=== PATIENT | female | born 1985 | race Hispanic/Latino ===

== ENCOUNTER 2019-11-25 13:55 | Outpatient (CLI) | payer BC, SELFPAY ==
--- NOTE | ~2019-11-25 | US_ITS ---
US abdomen limited INDICATION: Elevated liver enzymes PROCEDURE: Realtime right upper abdominal ultrasound. COMPARISON: No prior studies for comparison. FINDINGS: The pancreas is normal without focal mass or pancreatic ductal dilation. Liver echotexture is increased, consistent with fatty infiltration. There is normal directional flow in the portal ve in. The gallbladder is normal without stones, gallbladder wall thickening or pericholecystic fluid. Comm on bile duct measures 4 mm. No sonographic Camacho's sign. IMPRESSION: 1: Hepatic steatosis. Reviewed, dictated and finalized at location A. PLANNER IMPRESSION: 1: Hepatic steatosis.
== END 2019-11-25 13:56 | disposition home or self-care (01) ==
LOC: ANHIMG 13:59
PROVIDERS: PCP Physician Assistant; Visit Provider Physician Assistant
DX: R74.8 Abnormal levels of other serum enzymes (principal); K76.0 Fatty (change of) liver, not elsewhere classified
CPT/HCPCS: 76705

== ENCOUNTER 2024-11-25 20:10 | Emergency (ER) | payer SELFPAY ==
--- NOTE | ~2024-11-25 | XR_ITS ---
EXAMINATION: XR chest 2V DATE: 11/25/2024 21:29 INDICATION: Chest pain. TECHNIQUE: Frontal and lateral views of the chest were obtained. COMPARISON: CT abdomen and pelvis 01/02/2014 FINDINGS: There is no pneumonia, pleural effusion, or pneumothorax. The heart size is normal. IMPRESSION: 1. No acute cardiopulmonary disease. Reviewed, dictated and finalized at location A. CCO PRIMER MACHINE OPERATOR
--- OUTSIDE RECORDS SUMMARY | 2024-11-25 20:12 | XMS_ITS ---
Author Organization [facility] Address [address] [place] [address] Care Team Providers Care Packaging Line Attendant Name Role Phone McTimothy Unavailable [phone] REASON FOR VISIT [facility], interested in peptide therapy - prior Victoza losing 50 lbs but lost insurance, no side effects, appetite suppression lasting 3-4 days, Desired weight loss: previous shot at home -58lbs. -3.0 since last visit , - 11.1 total weight loss, No history MTC or MEN2 or pancreatitis, Concerned about future DM and OA Encounters Encounter Location Date Provider Diagnosis [facility] ([address]) [address] [address] 09/27/2024 Timothy Bentley Chronic fatigue, unspecified R53.82 ; Abnormal weight gain R63.5 ; Other fatigue R53.83 and Other malaise R53.81 Assessments Encounter Date Diagnosis (ICD Code) Assessment Notes Treatment Notes Treatment Clinical Notes Section Notes 09/27/2024 Chronic fatigue, unspecified (ICD-10 - R53.82) 09/27/2024 Abnormal weight gain (ICD-10 - R63.5) 09/27/2024 Other fatigue (ICD-10 - R53.83) 09/27/2024 Other malaise (ICD-10 - R53.81) Plan Of Treatment Next Appt Details Follow Up: 1 Week, Reason: G LP-1 Agonist Administration Procedure Notes * Category Sub-Category Detail Notes [facility] tirzepatide Indication: weig ht loss Concentration: 10 mg/mL Volume Administered: 0.25 mL Dose Administered: 2.5 mg Route: SQ Location: Left abdomen Frequency: weekly Lot Number/Expiration: Medication Source: Nutraceutical Comp ounding Adverse Reaction: None Progress Notes * Lb LOUISEaDOB:1985 (39 yo F)Acc No.[id number]:09/27/2024 Weight Loss Patient: Florecita NASCIMENTO Provider: Conrado Bentley MD :1985 A ge:39 Y S ex:Female Date:09/27/2024 Address:[address] [place] [address] Subjective: * Chief Complaints: * 1 . [facility], interested in peptide therapy - prior Victoza losing 50 lbs but lost insurance, no side effects, appetite suppression lasting 3-4 days. 2. Desired weight loss: previous shot at home -58lbs. -3.0 since last visit , - 11.1 total weight loss. 3. No history MTC or MEN2 or pancreatitis. 4. Concerned about future DM and OA. * HPI: * [facility]: The risks, benefits & alternatives were discussed regarding available treatment options. A treatment path was determined after reviewing the patients medical records, our verbal discussions and via joint decision-making Consents for our planned treatments were signed and are on file. * Medical History: Objective: * Vitals: Assessment: * Assessment: 1. A bnormal weight gain - R63.5 (Primary) 2 . C hronic fatigue, unspecified - R53.82 3 . O ther fatigue - R53.83 4 . O ther malaise - R53.81 Plan: * Treatment: * Procedures: [facility]: Weight Management: tirzepatide I ndication w eight loss C oncentration 1 0 mg/mL V olume Administered 0 .25 mL D ose Administered 2 .5 mg R oute S Q L ocation L eft abdomen F requency w eekly L ot Number/Expiration 0 M edication Source A H Nutraceutical Compounding A dverse Reaction N one * Follow Up: 1 Week (Reason: GLP-1 Agonist Administration) * Billing Information: * Visit Code: * Procedure Codes: 76667 [facility] - Weekly (tirzepatide) (0.5-5 mg) Tier 1. * Electronic signature of Patr sal Bentley MD, FAAAAI on 11/25/2024 at 08:12 PM TAKE AWAY WORKER Sign off status: Pending * Provider: Conrado Bentley MD Date: 1 11/28/2023 Generated for Trina fine/Marisol/Eleni on: 0 11/25/2024 08:12 PM TAKE AWAY WORKER History and Physical Notes * HPI (History of Present Illness) Category Sub-Category Detail Notes Category Not es *[facility] The r isks, benefits & alternatives were discussed regarding available treatment options. A treatment path was determined after reviewing the patients medical records, our verbal discussions and via joint decision-making Consents for our planned treatments were signed and are on file
--- OUTSIDE RECORDS SUMMARY | 2024-11-25 20:13 | XMS_ITS | Continuity of Care Document ---
Author Organization [facility] Address [address] [place] [address] Phone Care Team Providers Care Developmental Education Instructor Name Role Phone Pam ROUSSEAU, Jodi Unavailable Unavailable Allergies, Adverse Reactions, Alerts Substance Reaction Status Criticality Penicillins Active No Information Medications Medication Instructions Dosage Effective Dates (start - stop) Status Comments Prilosec 20 mg capsule,delayed release take 1 capsule (20MG) by oral route every day before a meal - Active Prenavite 28 mg-0.8 mg tablet one by mouth daily - Active Procedures Procedure Date care, at-risk assessment care, at-risk enhanced service; antepartum management MENTAL HEALTH ASSESSMENT, BY NON-PHYSICI AN Oral Assessment URINE TEST, BY VISUAL COLOR CO MPARISON METHODS Voided Encounter COLLECTION OF VENOUS BLOOD BY VENIPUNCTMoises RE OFFICE/OUTPATIENT VISIT, EST OFFICE/OUTPATIENT VISIT, EST AZITHROMYCIN DIHYDRATE, ORAL, CAPSULES/P OWDER, 1 GRAM OFFICE/OUTPATIENT VISIT, EST Wet margaret, including preparations of va ginal, cervical or skin specimens OFFICE/OUTPATIENT VISIT, EST Wet margaret, including preparations of va ginal, cervical or skin specimens COLLECTION OF VENOUS BLOOD BY VENIPUNCTU RE AZITHROMYCIN DIHYDRATE, ORAL, CAPSULES/P OWDER, 1 GRAM OFFICE/OUTPATIENT VISIT, EST OFFICE/OUTPATIENT VISIT, EST Wet margaret, including preparations of va ginal, cervical or skin specimens OFFICE/OUTPATIENT VISIT, EST OFFICE OUTPT EST 10 MIN HUMAN PAPILLOMA VIRUS VACCINE QUADRIV 3 DOSE IM OFFICE/OUTPATIENT VISIT, EST THYROID STIMULATING HORMONE (TSH) SHVG SKN LES 1 LES T/A/L DIAM 0.6-1.0 CM BLOOD COUNT; COMPLETE (CBC), AUTOMATED (HGB, HCT, RBC, WBC AND PLATELET COUNT) LIPID PANEL CALCIFEDIOL (25-OH VITAMIN D-3) 009 GLUCOSE BLOOD TEST OFFICE/OUTPATIENT VISIT, EST COLLECTION OF VENOUS BLOOD BY VENIPUNCTU RE COMPRE METAB PANEL CUL FNGI MOLD/YEAST PRSMPTV ID SKN HAIR/ NAIL CHYLMD TRACH, DNA, AMP PROBE N.GONORRHOEAE, DNA, AMP PROB CULTURE, BACTERIAL; QUANTITATIVE COLONY COUNT, URINE CYTP C/V AUTO THIN LYR PREPJ SCR MNL RES CR PHYS URNLS DIP STICK/TABLET RGNT AUTO W/O TIFF HUMAN PAPILLOMA VIRUS VACCINE QUADRIV 3 DOSE IM URINALYSIS; MICROSCOPIC ONLY OFFICE OUTPT EST 40 MIN Limit oral eval problem focused 008 Periapical first film OFFICE/OUTPATIENT VISIT, EST OFFICE OUTPT EST 10 MIN INSERTION OF INTRAUTERINE DEVICE (IUD) N URINE TEST, BY VISUAL COLOR CO MPARISON METHODS OFFICE CONSULT, 15 MIN, 3 KE Y COMPS: PROB FOCUS HX; PROB FOCUS EXAM; STRTFWD BLOOD COUNT; HEMOGLOBIN (HGB) 6 OFFICE OUTPT EST 25 MIN BLOOD COUNT; HEMOGLOBIN (HGB) 6 US PG UTER R-T IMG LMTD 1+ FETUSES HOSPITAL DISCHARGE DAY MANAGEMENT; 30 WA NUTES OR LESS SBSQ HOSP CARE NM D 15 MIN OBSTETRICAL CARE URNLS DIP STICK/TABLET RGNT AUTO W/O TIFF OFFICE OUTPT EST 25 MIN URNLS DIP STICK/TABLET RGNT AUTO W/O TIFF GLUCOSE BLOOD TEST CULTURE, PRESUMPTIVE, PATHOGENIC ORGANIS MS, SCREENING ONLY; OFFICE OUTPT EST 25 MIN PROTEIN, TOTAL, EXCEPT BY REFRACTOMETRY; URINE URNLS DIP STICK/TABLET RGNT AUTO W/O TIFF OFFICE OUTPT EST 25 MIN GLUCOSE BLOOD TEST OFFICE CONSULT, 15 MIN, 3 KE Y COMPS: PROB FOCUS HX; PROB FOCUS EXAM; [facility] GLUCOSE BLOOD TEST OFFICE OUTPT EST 25 MIN URNLS DIP STICK/TABLET RGNT AUTO W/O TIFF OFFICE OUTPT EST 25 MIN URNLS DIP STICK/TABLET RGNT AUTO W/O TIFF GLUCOSE; POST GLUCOSE DOSE (INCLUDES GLU COSE) OFFICE CONSULT, 15 MIN, 3 KE Y COMPS: PROB FOCUS HX; PROB FOCUS EXAM; [facility] GLUCOSE BLOOD TEST OFFICE/OUTPATIENT VISIT, EST URNLS DIP STICK/TABLET RGNT AUTO W/O TIFF OFFICE OUTPT EST 25 MIN CULTURE, BACTERIAL; QUANTITATIVE COLONY COUNT, URINE GLUCOSE BLOOD TEST URNLS DIP STICK/TABLET RGNT AUTO W/O TIFF OFFICE CONSULT, 15 MIN, 3 KE Y COMPS: PROB FOCUS HX; PROB FOCUS EXAM; [facility] OFFICE CONSULT, 15 MIN, 3 KE Y COMPS: PROB FOCUS HX; PROB FOCUS EXAM; [facility] SMEAR, WET MOUNT, SALINE/INK CHYLMD TRACH, DNA, AMP PROBE CYTP C/V FLU AUTO THIN MNL PHYS 006 N.GONORRHOEAE, DNA, AMP PROB OFFICE OUTPT EST 25 MIN URNLS DIP STICK/TABLET RGNT AUTO W/O TIFF OFFICE CONSULT, 15 MIN, 3 KE Y COMPS: PROB FOCUS HX; PROB FOCUS EXAM; STRTFWD OFFICE O/P EST 5 MIN OFFICE CONSULT, 15 MIN, 3 KE Y COMPS: PROB FOCUS HX; PROB FOCUS EXAM; STRTFWD OFFICE CONSULT, 15 MIN, 3 KE Y COMPS: PROB FOCUS HX; PROB FOCUS EXAM; STRWD HEMOGLOBIN ELECTROPHORESIS OB PANEL CULTURE, BACTERIAL; QUANTITATIVE COLONY COUNT, URINE ANTIBODY; HIV-1 URNLS DIP STICK/TABLET RGNT AUTO W/O TIFF LEAD OFFICE OUTPT EST 25 MIN SKIN TEST; TUBERCULOSIS, INTRADERMAL Oct OFFICE OUTPT EST 25 MIN OFFICE CONSULT, 15 MIN, 3 KE Y COMPS: PROB FOCUS HX; PROB FOCUS EXAM; STRWD URINE TEST, BY VISUAL COLOR CO MPARISON METHODS OFFICE O/P EST 5 MIN Advance Directives Directive Yes / No Effective Date File Name No Information Encounters Encounter Description Practice Location Reason(s) For Visit Diagnoses Date Provider Providers Copied on Encounter [facility], [address], [place], [place], [address] , tel:[phone] [facility] No Information 4 Pam Zapata. [address], [place], [place], [address], . tel:[phone] [facility], [address], [place], [place], [address] , tel:[phone] [facility] No Information 2 Pam Zapata. [address], [place], [place], [address], . tel:[phone] [facility], [address], [place], [place], [address] , [place] tel: [phone] [facility] No Information 2 Management Case. [address], [place], [place], [address], [place]. tel:[phone] Consulting Provider: Day Travis, [address], [place], [address]. tel:[phone] [facility], [address], [place], [place], [address] , [place] tel: [phone] [facility] examination 2 Karin Sheryl. [address], [place], [place], [address]. tel:[phone] [facility], [address], [place], [place], [address] , tel: [phone] [facility] No Information 2 No Information [facility], [address], [place], [place], [address] , [place] tel: [phone] [facility] amenorrhea (chief complaint) examination or test, unconfirmed 2 No Information [facility], [address], [place], [place], [address] , [place] tel: [phone] [facility] Other specified chlamydial infection 2 Pam Zapata. [address], [place], [address], [place]. tel:[phone] [facility], [address], [place], [place], [address] , [place] tel: [phone] [facility] Other specified chlamydial infection 2 Pam Zapata. [address], [place], [place], [address], [place]. tel:[phone] OFFICE/OUTPA TIENT VISIT, EST [facility], [address], [place], [place], [address] , [place] tel: [phone] [facility] f/u (chief complaint) Screening examination for venereal disease 2 Pam Zapata. [address], [place], [place], [address], [place]. tel:[phone] [facility], [address], [place], [place], [address] , [place] tel: [phone] [facility] Candidiasis of vulva and vagina 2 Pam Conwayah. [address], [place], [place], [address], [place]. tel:[phone] OFFICE/OUTPA TIENT VISIT, EST [facility], [address], [place], [place], [address] , [place] tel: [phone] [facility] IUD insertion (chief complaint) Other general counseling and advice on contraceptive management 2 Pam Zapata. [address], [place], [place], [address], [place]. tel:[phone] OFFICE/OUTPA TIENT VISIT, EST [facility], [address], [place], [place], [address] , [place] tel: [phone] [facility] chlamydia f/u (chief complaint) Other specified chlamydial infection 1 Pam Conwayah. [address], [place], [place], [address], [place]. tel:[phone] OFFICE/OUTPA TIENT VISIT, EST [facility], [address], [place], [place], [address] , [place] tel: [phone] [facility] ANDRADE (chief complaint) Leukorrhea, not specified as infectiveOthe r general counseling and advice on contraceptive managementScr eening for malignant neoplasms of the cervix 1 Pam Zapata. [address], [place], [place], [address], [place]. tel:[phone] [facility], [address], [place], [place], [address] , [place] tel: [phone] [facility] Screening for unspecified condition 1 Pam Zapata. [address], [place], [place], [address], [place]. tel:[phone] OFFICE/OUTPA TIENT VISIT, EST [facility], [address], [place], [place], [address] , [place] tel: [phone] [facility] IUD removal (chief complaint) Other general counseling and advice on contraceptive managementOth er specified chlamydial infection 1 Pam Zapata. [address], [place], [place], [address], [place]. tel:[phone] OFFICE/OUTPA TIENT VISIT, EST [facility], [address], [place], [place], [address] , [place] tel: [phone] [facility] PT only (chief complaint)a bdominal discomfort (chief complaint) Surveillance of intrauterine contraceptive device 1 Lenard Shepherd. [address], [place], [address], [place]. tel:[phone] OFFICE/OUTPA TIENT VISIT, EST [facility], [address], [place], [place], [address] , [place] tel: [phone] [facility] IUD check (chief complaint) Surveillance of intrauterine contraceptive device 0 Pam Zapata. [address], [place], [place], [address], [place]. tel:[phone] [facility], [address], [place], [place], [address] , [place] tel: [phone] Historic Immunization Location No Information 9 No Information OFFICE OUTPT EST 10 MIN [facility], [address], [place], [place], [address] , [place] tel: [phone] [facility] VACCIN FOR SINGL DIS NOS 9 Pam Zapata. [address], [place], [place], [address], [place]. tel:[phone] OFFICE/OUTPA TIENT VISIT, EST [facility], [address], [place], [place], [address] , [place] tel: [phone] [facility] DERMATOPHYTOS IS OF NAILSKIN HYPERTRO/ATRO PH NOS 0 9 Pam Jodi. [address], [place], [address], [place]. tel:[phone] OFFICE/OUTPA TIENT VISIT, EST [facility], [address], [place], [place], [address] , [place] tel: [phone] [facility] DERMATOMYCOSI S NOS 9 No Information OFFICE OUTPT EST 40 MIN [facility], [address], [place], [place], [address] , [place] tel: [phone] [facility] OTH SPECFD VIRAL WARTSROUTINE ACCOUNTING PRACTICE MANAGER EXAMINATIONDE RMATOPHYTOSIS OF NAIL 9 [facility] Jodi. [address], [place], [place], [address], [place]. tel:[phone] [facility], [address], [place], [place], [address] , [place] tel: [phone] [facility] DENTAL EXAMINATION 8 No Information OFFICE/OUTPA TIENT VISIT, EST [facility], [address], [place], [place], [address] , [place] tel: [phone] [facility] VIRAL WARTS NOS 7 No Information OFFICE OUTPT EST 10 MIN [facility], [address], [place], [place], [address] , [place] tel: [phone] [facility] IUD SURVEILLANCE 6 No Information [facility], [address], [place], [place], [address] , [place] tel: [phone] [facility] INSERTION OF IUD 6 No Information OFFICE CONSULT, 15 MIN, 3 PERSAUD COMPS: PROB FOCUS HX; PROB FOCUS EXAM; STRTFWD [facility], [address], [place], [place], [address] , [place] tel: [phone] [facility] COUNSELING NOS 6 No Information OFFICE OUTPT EST 25 MIN [facility], [address], [place], [place], [address] , [place] tel: [phone] [facility] ROUT POSTPART FOLLOW-UP 6 Pam Jodi. [address], [place], [place], [address], [place]. tel:[phone] [facility], [address], [place], [place], [address] , [place] tel: [phone] [facility] NORMAL DELIVERYLABOR ATORY EXAMINATION 6 Pam Jodi. [address], [place], [place], [address], [place]. tel:[phone] HOSPITAL DISCHARGE DAY MANAGEMENT; 30 MINUTES OR LESS [facility], [address], [place], [place], [address] , [place] tel: [phone] [facility] NORMAL DELIVERYDEL W 1 DEG LACERAT-DELDE LIVER-SINGLE LIVEBORN 6 No Information OFFICE OUTPT EST 25 MIN [facility], [address], [place], [place], [address] , [place] tel: [phone] [facility] SUPERVIS NORMAL 1ST PREG 6 Pam Ojdi. [address], [place], [place], [address], [place]. tel:[phone] OFFICE OUTPT EST 25 MIN [facility], [address], [place], [place], [address] , [place] tel:[phone] [facility] SUPERVIS OTH NORMAL PREG 200 6 Pam Jodi. [address], [place], [address], [place]. tel:[phone] [facility], [address], [place], [place], [address] , [place] tel: [phone] [facility] LABORATORY EXAMINATION 2- 6 Pam Jodi. [address], [place], [place], [address], [place]. tel:[phone] OFFICE OUTPT EST 25 MIN [facility], [address], [place], [place], [address] , [place] tel: [phone] [facility] SUPERVIS OTH NORMAL PREG 7-200 6 Pam Jodi. [address], [place], [address], [place]. tel:[phone] OFFICE CONSULT, 15 MIN, 3 PERSAUD COMPS: PROB FOCUS HX; PROB FOCUS EXAM; STRTFWD [facility], [address], [place], [place], [address] , [place] tel: [phone] [facility] COUNSELING NOS 1- 6 No Information OFFICE OUTPT EST 25 MIN [facility], [address], [place], [place], [address] , [place] tel: [phone] [facility] SUPERVIS OTH NORMAL PREG 3-200 6 Pam Jodi. [address], [place], [place], [address], [place]. tel:[phone] OFFICE OUTPT EST 25 MIN [facility], [address], [place], [place], [address] , [place] tel: [phone] [facility] SUPERVIS OTH NORMAL PREG 4-200 6 Pam Jodi. [address], [place], [address], [place]. tel:[phone] OFFICE CONSULT, 15 MIN, 3 PERSAUD COMPS: PROB FOCUS HX; PROB FOCUS EXAM; STRTFWD [facility], [address], [place], [place], [address] , [place] tel: [phone] [facility] COUNSELING NOS 1- 6 No Information OFFICE/OUTPA TIENT VISIT, EST [facility], [address], [place], [place], [address] , [place] tel: [phone] [facility] SUPERVIS OTH NORMAL PREG Jan- 6 Pam Jodi. [address], [place], [place], [address], [place]. tel:[phone] OFFICE OUTPT EST 25 MIN [facility], [address], [place], [place], [address] , [place] tel: [phone] [facility] SUPERVIS OTH NORMAL PREG Dec-0 6-200 6 Pam Jodi. [address], [place], [place], [address], [place]. tel:[phone] OFFICE CONSULT, 15 MIN, 3 PERSAUD COMPS: PROB FOCUS HX; PROB FOCUS EXAM; STRTFWD [facility], [address], [place], [place], [address] , [place] tel: [phone] [facility] ADJUSTMENT REACTION NOS Dec-0 3-200 6 No Information OFFICE CONSULT, 15 MIN, 3 PERSAUD COMPS: PROB FOCUS HX; PROB FOCUS EXAM; STRTFWD [facility], [address], [place], [address] , [place] tel: [phone] [facility] ADJUSTMENT REACTION NOS 4-200 6 No Information OFFICE OUTPT EST 25 MIN [facility], [address], [place], [place], [address] , [place] tel: [phone] [facility] SUPERVIS OTH NORMAL PREGURIN TRACT INFECTION NOS 200 6 Pam Jodi. [address], [place], [place], [address], [place]. tel:[phone] OFFICE CONSULT, 15 MIN, 3 PERSAUD COMPS: PROB FOCUS HX; PROB FOCUS EXAM; STRTFWD [facility], [address], [place], [place], [address] , [place] tel: [phone] [facility] ECONOMIC PROBLEM 6 No Information OFFICE O/P EST 5 MIN [facility], [address], [place], [place], [address] , [place] tel: [phone] [facility] SUPERVIS OTH NORMAL PREGFOLLOW-UP EXAM NOS 6 No Information OFFICE CONSULT, 15 MIN, 3 PERSAUD COMPS: PROB FOCUS HX; PROB FOCUS EXAM; STRTFWD [facility], [address], [place], [place], [address] , [place] tel: [phone] [facility] ADJUSTMENT REACTION NOS 6 No Information OFFICE CONSULT, 15 MIN, 3 PERSAUD COMPS: PROB FOCUS HX; PROB FOCUS EXAM; STRTFWD [facility], [address], [place], [place], [address] , [place] tel: [phone] [facility] ECONOMIC PROBLEM 6 No Information OFFICE OUTPT EST 25 MIN [facility], [address], [place], [place], [address] , [place] tel: [phone] [facility] SUPERVIS OTH NORMAL PREG 6 Pam Jodi. [address], [place], [place], [address], [place]. [phone] OFFICE OUTPT EST 25 MIN [facility], [address], [place], [place], [address] , [place] tel: [phone] [facility] OTITIS MEDIA NOS 6 Lenard Shepherd. [address], [place], [place], [address], [place]. tel:[phone] OFFICE CONSULT, 15 MIN, 3 PERSAUD COMPS: PROB FOCUS HX; PROB FOCUS EXAM; STRTFWD [facility], [address], [place], [place], [address] , [place] tel: [phone] [facility] ADJUSTMENT REACTION NOS 6 No Information OFFICE O/P EST 5 MIN [facility], [address], [place], [place], [address] , [place] tel: [phone] [facility] IRREGULAR MENSTRUATION 6 Lenard Shepherd. [address], [place], [place], [address], [place]. tel:[phone] Family History Family Member Type Diagnosis Age At Onset No Information Immunizations Vaccine Date Status Comments HUMAN PAPILLOMA VIRUS VACCIN E QUADRIV 3 DOSE IM administered Source: New Immuniza tion Record HUMAN PAPILLOMA VIRUS VACCIN E QUADRIV 3 DOSE IM administered Source: New Immuniza tion Record Payers Payer name Insurance type Covered libertarian ID Authoriza tion(s) Medicaid - Medical [id number] Social History Type Description Quantity Date Captured Comments Sex Female Smoking Status No Information Chief Complaint And Reason For Visit No Information Reason For Referral Reason For Referral No Information Plan Of Treatment Date Type Action Status Future Order: Lab Order CHLAMYDI A/N. GONORRHOEAE DNA, SDA ([id number]), Appointment on: , Sent on: Sent Future Order: Lab Order CHLAMYDI A/N. GONORRHOEAE DNA, SDA ([id number]), Appointment on: , Sent on: Sent Future Order: Lab Order CHLAMYDI A/N. GONORRHOEAE DNA, SDA ([id number]), Appointment on: , Sent on: Sent Future Order: Lab Order Wet Prep (Wet Prep), Appointment on: Ordered Future Order: Lab Order CHLAMYDI A/N. GONORRHOEAE DNA, SDA ([id number]), Appointment on: , Sent on: Sent Future Order: Lab Order THINPREP -TIS W/RFL HPV ([id number]), Appointment on: , Sent on: Sent Future Order: Lab Order Wet Prep (Wet Prep), Appointment on: Ordered Future Order: Lab Order HCG, QL, URINE ([id number]), Appointment on: , Sent on: Sent Future Order: Lab Order Wet Prep (Wet Prep), Appointment on: Ordered History Of Present Illness Encounter Date Complaint History Of Prese nt Illness No Information Functional Status Date Functional Assessmen t No Information Instructions Date Instruction Additional Infor mation No Information Assessments Type Assessment Date No Information Patient Care Teams Name Effective Dates (start - stop) Status Members No Information
--- OUTSIDE RECORDS SUMMARY | 2024-11-25 20:13 | XMS_ITS | Clinical Summary ---
Author Organization [facility] Care Team Providers Care Services Engineer Name Role Phone Unavailable Primary Care Provider Unavailabl e Social History Tobacco Use Types Packs/Day Years Used Date Smoking Tobacco: Never Assessed Comments Unknown Sex and Gender Information Value Date Recorded Sex Assigned at Not on file Legal Sex Female 11:21 AM [employer] Gender Identity Not on file Sexual Orientation Not on file Plan of Treatment Health Maintenance Due Date Last Done Comments Hepatitis C Virus (HCV) Screening 1987 TdaP Immunization 1987 Hepatitis B Immunization (1 of 3 - 19+ 3-dose series) 2006 Pap Smear 2008 Cervical Cancer Screening (CCS) 2017 HPV/Cotest 2017 Influenza Immunization (#1) 2024 SARS-COV-2 Immunization ( season) 2024 Respiratory Syncytial Virus (RSV) Immunization (Adult) (1 - 1-dose 75+ series) 2062 Meningococcal Immunization (ACWY) Aged Out No longer eligible based on patient's age to complete this topic Pneumococcal Immunization Combined Aged Out No longer eligible based on patient's age to complete this topic Rotavirus Immunization Aged Out No lo nger eligible based on patient's age to complete this topic
--- OUTSIDE RECORDS SUMMARY | 2024-11-25 20:13 | XMS_ITS | Data Portability ---
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 Lab HbA1c (hemoglobin A1c), blood 2023 024 [facility] [address], [place], [address], 4 09:16:21 lipid panel, serum 2023 024 [facility] [facility], [address], [address], [place], [address], 4 09:16:19 TSH, ultra-sensi tive, serum 2023 024 [place] [facility], [address], [address], [place], [address], 4 09:16:21 CMP, serum or plasma 2023 024 [facility]YN [place], 2022 Mur[address], [address], [place], [address], 4 09:16:20 CBC w/ auto diff [address] [facility], 2022 Muriel Cruz, [address], [place], [address], 4 09:16:22 vitamin D, 25-hydroxy, total, serum [address] [facility], 2022 Muriel Cruz, [address], [place], [address], 4 09:16:22 rapid strep group A, throat 2022 023 [email or web address] In-Office Order, Internal Use Only DO Not Attach Compendium DO Not Attach Compendium, Do Not Delete/merge, [id number] 3 11:31:58 rapid SARS CoV 2 Ag, QL IA, respiratory specimen 2022 023 [email or web address] In-Office Order, Internal Use Only DO Not Attach Compendium DO Not Attach Compendium, Do Not Delete/merge, [id number] 3 11:19:05 rapid flu (A+B) 2022 023 [email or web address] In-Office Order, Internal Use Only DO Not Attach Compendium DO Not Attach Compendium, Do Not Delete/merge, [id number] 3 11:18:59 Referral None recorded. Procedures None recorded. Surgeries None recorded. Imaging None recorded. Medication Orders Zithromax Z-Eric 250 mg tablet 2022 023 [facility], [address] [facility], [place], [address], 3 11:35:37 Victoza 3-Eric 0.6 mg/0.1 mL (18 mg/3 mL) subcutaneou s pen injector 2022 023 [facility], [address] [place] [address], [address], 3 16:40:31 Ozempic 0.25 mg or 0.5 mg (2 mg/1.5 mL) subcutaneou s pen injector 2022 023 [facility], [address] [facility], [place], [address], 16:19:17 Patient TargetsNo targets recorded. Patient Instructions Encounter Date Encounter Id Patient Instructions Last Modified By Organization Details Last Modified Time 05/29/2022 [id number] A healthy lifestyle: care instructions Not available 05/29/2022 14:55:25 10/04/2023 [id number] strep throat: care instructions [email or web address] Not available 10/04/2023 11:36:16 Reviewed the following recommendations: -Stay home and separate from others as much as possible. -Monitor your symptoms and seek medical attention for trouble breathing, persistent chest pain, confusion, or bluish lips or face. -Wear a mask if you must be around other people. -Wash your hands often for 20 seconds with soap and water and clean high-touch surfaces daily -You may discontinue home isolation if your symptoms are improving and it has been 10 days since symptoms started. Refer to discharge handout for further discharge instructions [email or web address] Not available 10/04/2023 11:36:06 04/22/2024 [id number] A healthy lifestyle: care instructions Not available 04/22/2024 14:04:08 Reason for Referral None Reported. Results Created Date Observation Date Name Description Value Unit Range Abnormal Flag Note LastModifiedBy Organization Detail LastModifiedTime 10/04/2010/04/2023 rapid strep group A, throa t Strep positi ve Not Available In-Office Order Internal Use Only DO Not Attach Compendium DO Not Attach Compendium, Do Not Delete/merge, [id number] 10/04/2023 11:29:08 10/04/2010/04/2023 rapid flu (A+B) Flu A negati ve Not Available In-Office Order Internal Use Only DO Not Attach Compendium DO Not Attach Compendium, Do Not Delete/merge, [id number] 10/04/2023 11:04:21 10/04/20 23 10/04/2023 rapid flu (A+B) Flu B negati ve Not Available In-Office Order Internal Use Only DO Not Attach Compendium DO Not Attach Compendium, Do Not Delete/merge, [id number] 10/04/2023 11:04:21 10/04/20 23 10/04/2023 rapid SARS CoV 2 Ag, QL IA, respi rator y speci men rapid SARS CoV 2 Ag, QL IA, respiratory specimen negati ve Not Available In-Office Order Internal Use Only DO Not Attach Compendium DO Not Attach Compendium, Do Not Delete/merge, [id number] 10/04/2023 11:04:32 04/22/20 24 04/23/2024 LIPID PANEL cholesterol, total 146 mg/dL 100-19 9 Not Available [facility] ([facility]) [address] [place], [address], 04/23/2024 09:16:19 04/22/20 24 04/23/2024 LIPID PANEL triglyceride s 163 mg/dL 0-149 above high normal Not Available [facility] ([facility]) [address] [place], [address], 04/23/2024 09:16:19 04/22/20 24 04/23/2024 LIPID PANEL HDL cholesterol 38 mg/dL >39 below low normal Not Available [facility] ([facility]) [address] [facility], [place], [address], 04/23/2024 09:16:19 04/22/20 24 04/23/2024 LIPID PANEL VLDL cholesterol kristie 28 mg/dL 5-40 Not Available [facility] ([facility]) [address] [place], [address], 04/23/2024 09:16:19 04/22/20 24 04/23/2024 LIPID PANEL LDL chol calc ([facility]) 80 mg/dL 0-99 Not Available [facility] ([facility]) [address] [place], [address], 04/23/2024 09:16:19 04/22/20 24 04/23/2024 COMP. METAB OLIC PANEL (14) glucose 107 mg/dL 70-99 above high normal Not Available [facility] ([facility]) [address] [facility] [place], [address], 04/23/2024 09:16:20 04/22/20 24 04/23/2024 COMP. METAB OLIC PANEL (14) BUN 11 mg/dL 6-20 Not Available [facility] ([facility]) [address] [place], [address], 04/23/2024 09:16:20 04/22/20 24 04/23/2024 COMP. METAB OLIC PANEL (14) creatinine 0.91 mg/dL 0.57-1 .00 Not Available [facility] ([facility]) [address] [facility], [place], [address], 04/23/2024 09:16:20 04/22/20 24 04/23/2024 COMP. METAB OLIC PANEL (14) eGFR 84 mL/mi n/1.7 3 >59 Not Available [facility] ([facility]) [address] [place], [address], 04/23/2024 09:16:20 04/22/20 24 04/23/2024 COMP. METAB OLIC PANEL (14) BUN/creatini ne ratio 12 9-23 Not Available [facility] ([facility]) [address] [place], [address], 04/23/2024 09:16:20 04/22/20 24 04/23/2024 COMP. METAB OLIC PANEL (14) sodium 138 mmol/ L 134-14 4 Not Available [facility] ([facility]) [address] [place], [address], 04/23/2024 09:16:20 04/22/20 24 04/23/2024 COMP. METAB OLIC PANEL (14) potassium 4.1 mmol/ L 3.5-5. 2 Not Available [facility] ([facility]) [address], [place], [address], 04/23/2024 09:16:20 04/22/20 24 04/23/2024 COMP. METAB OLIC PANEL (14) chloride 105 mmol/ L 96-106 Not Available [facility] ([facility]) [address] [place], [address], 04/23/2024 09:16:20 18 24 04/23/2024 COMP. METAB OLIC PANEL (14) carbon dioxide, total 22 mmol/ L 20-29 Not Available [facility] ([facility]) [address] [place], [address], 04/23/2024 09:16:20 04/22/20 24 04/23/2024 COMP. METAB OLIC PANEL (14) calcium 9.6 mg/dL 8.7-10 .2 Not Available [facility] ([facility]) [address] [place], [address], 04/23/2024 09:16:20 04/22/20 24 04/23/2024 COMP. METAB OLIC PANEL (14) protein, total 7.3 g/dL 6.0-8. 5 Not Available [facility] ([facility]) [address] [place], [address], 04/23/2024 09:16:20 04/22/20 24 04/23/2024 COMP. METAB OLIC PANEL (14) albumin 4.4 g/dL 3.9-4. 9 Not Available [facility] ([facility]) [address] [place], [address], 04/23/2024 09:16:20 18 24 04/23/2024 COMP. METAB OLIC PANEL (14) globulin, total 2.9 g/dL 1.5-4. 5 Not Available [facility] ([facility]) [address] [place], [address], 04/23/2024 09:16:20 04/22/20 24 04/23/2024 COMP. METAB OLIC PANEL (14) bilirubin, total 0.3 mg/dL 0.0-1. 2 Not Available [facility] ([facility]) [address] [place], [address], 04/23/2024 09:16:20 04/22/20 24 04/23/2024 COMP. METAB OLIC PANEL (14) alkaline phosphatase 72 IU/L 44-121 Not Available [facility] ([facility]) [address] [place], [address], 04/23/2024 09:16:20 04/22/20 24 04/23/2024 COMP. METAB OLIC PANEL (14) AST (SGOT) 39 IU/L 0-40 Not Available [facility] ([facility]) [address] [place], [address], 04/23/2024 09:16:20 04/22/20 24 04/23/2024 COMP. METAB OLIC PANEL (14) ALT (SGPT) 58 IU/L 0-32 above high normal Not Available [facility] ([facility]) [address] [place], [address], 04/23/2024 09:16:20 04/22/20 24 04/23/2024 TSH RFX ON ABNOR MAL TO FREE T4 TSH 1.350 uIU/m L 0.450- 4.500 Not Available [facility] ([facility]) [address] [place], [address], 04/23/2024 09:16:20 04/22/20 24 04/23/2024 HEMOG LOBIN A1C hemoglobin A1C 6.1 % 4.8-5. 6 above high normal Predi abete s: 5.7 - 6.4 Diabe obi: >6.4 Glyce eric contr ol for adult s with diabe obi: <7.0 Not Available [facility] ([facility]) [address] [facility], [place], [address], 04/23/2024 09:16:21 04/22/20 24 04/23/2024 CBC WITH DIFFE RENTI AL/PL ATELE T WBC 5.8 x10e3 /uL 3.4-10 .8 Not Available [facility] ([facility]) [address] [facility], [place], [address], 04/23/2024 09:16:22 04/22/20 24 04/23/2024 CBC WITH DIFFE RENTI AL/PL ATELE T RBC 4.82 x10e6 /uL 3.77-5 .28 Not Available [facility] ([facility]) [address] [facility], [place], [address], 04/23/2024 09:16:22 04/22/20 24 04/23/2024 CBC WITH DIFFE RENTI AL/PL ATELE T hemoglobin 13.5 g/dL 11.1-1 5.9 Not Available [facility] ([facility]) [address] [facility], [place], [address], 04/23/2024 09:16:22 04/22/20 24 04/23/2024 CBC WITH DIFFE RENTI AL/PL ATELE T hematocrit 42.6 % 34.0-4 6.6 Not Available [facility] ([facility]) [address] [facility], [place], [address], 04/23/2024 09:16:22 04/22/20 24 04/23/2024 CBC WITH DIFFE RENTI AL/PL ATELE T MCV 88 fL 79-97 Not Available [facility] ([facility]) [address] [facility], [place], [address], 04/23/2024 09:16:22 04/22/20 24 04/23/2024 CBC WITH DIFFE RENTI AL/PL ATELE T MCH 28.0 pg 26.6-3 3.0 Not Available [facility] ([facility]) [address] [place], [address], 04/23/2024 09:16:22 04/22/20 24 04/23/2024 CBC WITH DIFFE RENTI AL/PL ATELE T MCHC 31.7 g/dL 31.5-3 5.7 Not Available [facility] ([facility]) [address] [place], [address], 04/23/2024 09:16:22 04/22/20 24 04/23/2024 CBC WITH DIFFE RENTI AL/PL ATELE T RDW 13.4 % 11.7-1 5.4 Not Available [facility] ([facility]) [address] [facility], [place], [address], 04/23/2024 09:16:22 04/22/20 24 04/23/2024 CBC WITH DIFFE RENTI AL/PL ATELE T platelets 146 x10e3 /uL 150-45 0 below low normal Not Available [facility] ([facility]) [address] [place], [address], 04/23/2024 09:16:22 04/22/20 24 04/23/2024 CBC WITH DIFFE RENTI AL/PL ATELE T neutrophils 56 % notest ab. Not Available [facility] ([facility]) [address] [place], [address], 04/23/2024 09:16:22 04/22/20 24 04/23/2024 CBC WITH DIFFE RENTI AL/PL ATELE T lymphs 34 % notest ab. Not Available [facility] ([facility]) [address] [place], [address], 04/23/2024 09:16:22 04/22/20 24 04/23/2024 CBC WITH DIFFE RENTI AL/PL ATELE T monocytes 6 % notest ab. Not Available [facility] ([facility]) [address] [facility] [place], [address], 04/23/2024 09:16:22 04/22/20 24 04/23/2024 CBC WITH DIFFE RENTI AL/PL ATELE T eos 3 % notest ab. Not Available [facility] ([facility]) [address] [facility], [place], [address], 04/23/2024 09:16:22 04/22/20 24 04/23/2024 CBC WITH DIFFE RENTI AL/PL ATELE T basos 1 % notest ab. Not Available [facility] ([facility]) [address] [facility], [place], [address], 04/23/2024 09:16:22 04/22/20 24 04/23/2024 CBC WITH DIFFE RENTI AL/PL ATELE T neutrophils (absolute) 3.3 x10e3 /uL 1.4-7. 0 Not Available [facility] ([facility]) [address] [facility], [place], [address], 04/23/2024 09:16:22 04/22/20 24 04/23/2024 CBC WITH DIFFE RENTI AL/PL ATELE T lymphs (absolute) 2.0 x10e3 /uL 0.7-3. 1 Not Available [facility] ([facility]) [address] [facility], [place], [address], 04/23/2024 09:16:22 04/22/20 24 04/23/2024 CBC WITH DIFFE RENTI AL/PL ATELE T monocytes(ab solute) 0.3 x10e3 /uL 0.1-0. 9 Not Available [facility] ([facility]) [address] [facility], [place], [address], 04/23/2024 09:16:22 04/22/20 24 04/23/2024 CBC WITH DIFFE RENTI AL/PL ATELE T eos (absolute) 0.2 x10e3 /uL 0.0-0. 4 Not Available [facility] ([facility]) [address] [facility], [place], [address], 04/23/2024 09:16:22 04/22/20 24 04/23/2024 CBC WITH DIFFE RENTI AL/PL ATELE T baso (absolute) 0.0 x10e3 /uL 0.0-0. 2 Not Available [facility] ([facility]) [address] [facility], [place], [address], 04/23/2024 09:16:22 04/22/20 24 04/23/2024 CBC WITH DIFFE RENTI AL/PL ATELE T immature granulocytes 0 % notest ab. Not Available [facility] ([facility]) [address] [facility], [place], [address], 04/23/2024 09:16:22 04/22/20 24 04/23/2024 CBC WITH DIFFE RENTI AL/PL ATELE T immature grans (abs) 0.0 x10e3 /uL 0.0-0. 1 Not Available [facility] ([facility]) [address] [facility], [place], [address], 04/23/2024 09:16:22 04/22/20 24 04/23/2024 VITAM IN D, 25-HY DROXY vitamin D, 25-hydroxy 25.8 NG/mL 30.0-1 00.0 below low normal Vitam in D defic iency has been defin ed by the Insti tute of Medic ine and an Endoc rine Socie ty pract ice guide line as a level of serum 25-OH vitam in D less than 20 ng/mL (1,2) . The Endoc rine Socie ty went on to furth er defin e vitam in D insuf ficie ncy as a level betwe en 21 and 29 ng/mL (2). 1. IOM (Inst itute of Medic ine). 2010. Dieta ry refer ence intak es for calci um and D. Mable menendez [place]: The [facility], 1928–1983 [facility] Press . 2. Noe doran MF, Douglas emanuel [place], Barb off-F efraín i ESCOTO, et al. Evalu ation , treat ment, and preve ntion of vitam in D defic iency : an Endoc rine Socie ty clini kristie pract ice guide line. JCEM. 2010; 96(7) :1911 -30. Not Available [facility] ([facility]) [address] [facility], [place], [address], 04/23/2024 09:16:22 Result Notes None recorded. Problems Name Problem SNOMED Code Status Onset Date Resolution Date Notes Provider Name and Address Organization Details Recorded Time Obesity 666720835 Active 2018 MARY CIFUENTES Attn: Josey walters,[address] [place], [place], [address] [place] [address] 2, [facility] 9 13:49:31 Hypothyroidism 56876839 Active 2018 MARY CIFUENTES Attn: Josey walters,[address] [place], [place], [address] [place] [address] 2, [facility] - [facility] 9 10:14:41 Alanine aminotransfera se above reference range 447443604 Active 2018 MARY CIFUENTES Attn: Josey walters,[address] [place], [place], [address] [place] [address] 2, [facility] 9 10:14:56 Vitamin D deficiency 41072428 Active 2018 MARY CIFUENTES Attn: Josey walters,[address] [place], [place], [address] [place] [address] 2, [facility] 9 10:15:03 Onychomycosis 455909483 Active 2018 MARY CIFUENTES Attn: Josey walters,[address] [place], [place], [address] [place] [address] 2, [facility] 9 10:15:22 Problem Notes None recorded. Procedures Surgical History Date Name Laterality Status Provider Name and Address Organization Details Recorded Time Tubal Ligation completed Ivelisse Olmedo [place] - [facility] 10/12/2018 11:39:08 Imaging Results None recorded. Procedure Notes None recorded. Medical Equipment None Reported. Allergies Allergen ID Allergen Name Allergen Category Reaction Reaction Severity Criticality Documentation Date Start Date Code Code System Note Provider Name and Address Organization Details Recorded Time 621710 Product containin g penicilli n (product) medicatio n hives moderate Not available 10/12/2018 72781 8001 SNOMED Not Available Not Available Not Available Medications Name Sig Start Date Stop Date Status Note LastModified by Organization Details LastModified Time cyclobenzap rine 10 mg tablet 12/24 completed Not Available Not Available Not Available doxycycline hyclate 100 mg capsule TAKE 1 CAPSULE BY MOUTH TWICE DAILY FOR 10 DAYS 12/24 completed Not Available Not Available Not Available cetirizine 10 mg tablet Take 1 tablet every day by oral route for 90 days. 05/29 completed Not Available Not Available Not Available azithromyci n 250 mg tablet TAKE 2 TABLETS BY MOUTH ON DAY 1, AND THEN TAKE 1 TABLET BY MOUTH ONCE A DAY ON DAY 2 THROUGH DAY 5 active Not Available Not Available No t Available fluconazole 150 mg tablet 10/12 completed Not Available Not Available Not Available levothyroxi ne 25 mcg tablet TAKE 1 TABLET BY MOUTH ONCE DAILY BEFORE A MEAL(S) FOR 30 DAYS 12/24 completed Not Available Not Available Not Available ciclopirox 8 % topical solution APPLY TO AFFECTED AREA AT BEDTIME OR 8 HOURS BEFORE WASHING 05/29 completed Not Available Not Available Not Available terbinafine HCl 250 mg tablet TAKE 1 TABLET BY MOUTH ONCE DAILY 05/29 completed Not Available Not Available Not Available neomycin-po lymyxin-dex ameth 3.5 mg/mL-10,00 0 unit/mL-0.1 % eye drops 12/24 completed Not Available Not Available Not Available clotrimazol e-betametha sone 1 %-0.05 % topical cream 10/12 completed Not Available Not Available Not Available methylpredn isolone 4 mg tablets in a dose pack 09/03 completed Not Available Not Available Not Available Vitamin D2 1,250 mcg (50,000 unit) capsule TAKE 1 CAPSULE BY MOUTH ONCE A WEEK 05/29 completed Not Available Not Available Not Available fluticasone propionate 50 mcg/actuati on nasal spray,suspe nsion [place] 1 spray every day by intranasa l route. 05/29 completed Not Available Not Available Not Available naproxen 500 mg tablet Take 1 tablet twice a day by oral route as needed. 07/07 completed Not Available Not Available Not Available Victoza 3-Eric 0.6 mg/0.1 mL (18 mg/3 mL) subcutaneou s pen injector Inject 1.8 mg every day by subcutane ous route. 2022 active Not Available Not Available Not Avai lable TechLITE Pen Needle 32 gauge x 5/32 USE FOR INJECTION S EVERY DAY active Not Available Not Available No t Available Ozempic 0.25 mg or 0.5 mg (2 mg/1.5 mL) subcutaneou s pen injector Inject 0.25 mg every week by subcutane ous route. 11/22 completed Not Available Not Available Not Available Wegovy 0.25 mg/0.5 mL subcutaneou s pen injector 11/14 completed Not Available Not Available Not Available Vitals Date Recorded Body height Heart rate Oxygen saturation Oxygen saturation in Arterial blood by Pulse oximetry Systolic blood pressure Diastolic blood pressure Provider Name and Address Organization Details Last Updated DateTime 2 163.2 cm 82 /min 99 % 99 % 104 mm[Hg] 68 mm[Hg] Sally Sanches [place] [facility] 2 14:11:52 Date Recorded Body mass index (BMI) Body weight Provider Name and Address Organization Details Last Updated DateTime 05/29/2022 33.7 kg/m2 28756.29 g MARY CIFUENTES Attn: Accounting,[address] [place], [address], [place] [facility] 05/29/2022 14:53:59 Date Recorded Body height Body mass index (BMI) Body weight Heart rate Oxygen saturation Oxygen saturation in Arterial blood by Pulse oximetry Systolic blood pressure Diastolic blood pressure Provider Name and Address Organization Details Last Updated DateTime 3 163.2 cm 35.3 kg/m2 60492.6 2 g 82 /min 98 % 98 % 120 mm[Hg] 72 mm[Hg] Sally Sanches [place] [facility] 3 15:30:01 Date Recorded Body height Body weight Heart rate Body temperature Respiratory rate Oxygen saturation Oxygen saturation in Arterial blood by Pulse oximetry Systolic blood pressure Diastolic blood pressure Provider Name and Address Organization Details Last Updated DateTime 3 163.2 cm 61894.2 4 g 78 /min 97.6 [degF] 16 /min 99 % 99 % 112 mm[Hg] 78 mm[Hg] Dalia Wong CMA [facility] 3 15:50:15 Date Recorded Body height Body mass index (BMI) Body weight Oxygen saturation Oxygen saturation in Arterial blood by Pulse oximetry Pain severity - 0-10 verbal numeric rating [Score] - Reported Heart rate Respiratory rate Body temperature Systolic blood pressure Diastolic blood pressure Provider Name and Address Organization Details Last Updated DateTime 3 163.2 cm 34 kg/m2 22037.9 8 g 96 % 96 % 8 86 /min 18 /min 98.9 [degF] 130 mm[Hg] 80 mm[Hg] Noni Ragland LPN [facility] 3 11:03:21 Date Recorded Body height Body mass index (BMI) Body weight Heart rate Oxygen saturation Oxygen saturation in Arterial blood by Pulse oximetry Systolic blood pressure Diastolic blood pressure Provider Name and Address Organization Details Last Updated DateTime 4 163.2 cm 35.4 kg/m2 35568.2 1 g 115 /min 97 % 97 % 119 mm[Hg] 89 mm[Hg] Sally Sanches [facility] 4 13:57:39 Social History Question Answer Notes LastModified by Organizat ion Details LastModified Time Tobacco Smoking Status Never Smoker USHA Mckeon, [facility] 10/12/2018 11:38:47 Do You Have An Advance Directive? No Information not available 02/08/2022 What Is Your Level Of Alcohol Consumption? Occasional Information not available 01/28/2022 Do You Or Have You Ever Used E-cigarettes Or Vape? Never Used Electronic Cigarettes Information not available 02/14/2020 Do You Have A Medical Power Of Slider Assembler? No Information not available 02/08/2022 What Was The Date Of Your Most Recent Tobacco Screening? 04/22/2024 Information not available 04/22/2024 Do You Or Have You Ever Used Smokeless Tobacco? Never Used Smokeless Tobacco Information not available 02/14/2020 How Much Tobacco Do You Smoke? No Information not available 10/12/2018 On What Date Was Tobacco Cessation Counseling Provided? 04/22/2024 Information not available 04/22/2024 How Many Years Have You Smoked Tobacco? 0 Information not available 10/12/2018 Sex: Female Functional Status None recorded. Mental Status None recorded. Family History Relationship Description Onset Age of this Age Resolved Age Notes LastModified by Organization Details LastModified Time Father Diabetes mellitus [email or web address] Not available 2018 11:37:49 Father Family history of stroke [place] Not available 2018 11:38:07 Father Hypercholest erolemia [place] Not available 2018 11:38:17 Brother Diabetes mellitus [email or web address] Not available 2018 11:37:49 Mother Diabetes mellitus [place] Not available 2018 11:37:49 Mother Malignant tumor of cervix [place] Not available 2018 11:38:27 Medical History Condition Response Coronary Artery Disease N Other N Atrial Fibrillation N High Blood Pressure N Thyroid Problems N Kidney or Bladder Problems N Depression N COPD N Blood Clots N GI Problems N Skin Problems N Anemia N Heart Attack ([place]) N Diabetes N Anxiety Disorder N Muscle, Joint, or Bone Problems N Seizures/Epilepsy N Acid Reflux (GERD) N Cancer N Stroke N Allergies N Asthma N High Cholesterol N Hepatitis N Liver Disease N Headaches N Osteoporosis N Heart Failure N Gynecological History Statement/Question Response Date of Last Mammogram Date of LMP 12/29/2021 Frequency of Cycle (Q days) 28 Menses Monthly Y Date of Last Pap Smear Duration of Flow (days) 5 LMP Definite Obstetrics History GPAL:G 3 P 3 0 0 3 Type Value Multiple Births 0 Full Term 3 Induced 0 Spontaneous 0 Premature 0 Living 3 Ectopics 0 Total 3 Immunizations Vaccine Type Date Status Note Provider Nam e and Address Organization Details Recorded Time COVID-19, mRNA, LNP-S, PF, 30 mcg/0.3 mL dose 12/25/2020 completed Sally Sanches [place], [place] [facility] 05/29/2022 14:51:56 COVID-19, mRNA, LNP-S, PF, 30 mcg/0.3 mL dose 01/22/2021 completed REAGAN Bean - [facility] 05/29/2022 14:52:00 Past Encounters Encounter ID Performer Location Encounter Start Date Encounter Closed Date Diagnosis/Indication Diagnosis SNOMED-CT Code Diagnosis ICD10 Code Diagnosis Note [id number] CALIXTO Zavala NP [facility] [address] [place] [address] 10/12/2018 10:50:41 10/12/2018 12:25:16 Family history of diabetes mellitus 465385756 Z83.3 Body mass index 30+ - obesity 949268478 Z68.33 -Obtain labs Weight gain 0931711 R63. 5 Past pregn heather history of gestational diabetes mellitus 945106672 Z86.32 Acanthosis nigricans 402 430509 L83 Knee pain 10527239 M25.5 69 -Continue conservati ve tx- RICE-NSAID s-F/u prn Onychomyco sis of toenails 922985142 B35.1 -Will obtain CMP-Start terbinafin e if CMP normal [id number] MARY CIFUENTES [facility] [address] [place] [address] 07/07/2019 10:46:27 07/08/2019 08:21:31 Liver enzymes level above reference range 214652947 R74.8 Last CMP ((10-12-18) AST 43 AND alt 83 - rechecking today adn if elevated will send further lab studies- denies drinking, changes in skin/eye color, dry mouth/eyes , itching Prediabetes 408021020 R7 3.03 patient had gestationa l DM and strong family history of DM2. rechecking A1C today. - discussed diet and excercise, portion sizes and carb restrictio n, patient agrees- excercise 30 mins 5x week Hypertriglyceridemia 302 274955 E78.1 Last triglyceri dylan 198, HDL 38, TOTAL 170. discussed diet and excercise Fatigue 20346186 R53.83 patient has not been able to sleep as well as she used to. She is working nights. Does not know why she cannot fall asleep. [id number] MARY CIFUENTES [facility] [address] [place] [address] 09/03/2019 16:05:54 09/06/2019 08:50:45 Hemorrhoids 38317087 K64.9 Patient presents for hemorrhoid s. Prep H at home has helped. She may continue to use this. goal we discussed is diet and hydrating to avoid painful BM. - prep H- sitz baths- 64 oz of water- high fiber diet- apples, prunes,veg gies, fruits ect- patient taking miralax at home- f/u if worsening [id number] MARY CIFUENTES [facility] [address] [place] [address] 11/17/2019 10:54:08 11/18/2019 12:54:10 Vitamin D deficiency 27472902 E55.9 recehck Hypothyroidism 99069722 E03.9 TSH 6.390. Has been taking levothyrox ine fastin in am.- recheck today Liver enzy mes level above reference range 745012382 R74.8 Last CMP ((10-12-18) AST 43 AND alt 83 - rechecking today adn if elevated will send further lab studies- denies drinking, changes in skin/eye color, dry mouth/eyes , itching Pain in left knee 588631 9185 48761 M25.562 acute on chronic left knee pain. no swelling, trauma, known moa. She has been doing cross fit. On exam patient is weight bearing, full ROM, normal strength. tender elicited on lateral left knee. - modify excercise- RICE- 2 weeks of ibuprofen 400 mg 6-8 hours with food- f/u if no improvemen t [id number] MARY CIFUENTES [facility] [address] [place] [address] 02/14/2020 09:41:58 02/15/2020 10:20:43 Hypothyroidism 87025502 E03.9 TSH 3.1 11/17/19. Has been taking levothyrox ine fasting in am. no complaints today- recheck in two months [id number] MARY CIFUENTES [facility] [address] [place] [address] 12/24/2021 16:30:56 12/26/2021 09:32:49 Subclinical hypothyroidism 20030067 E02 sx of foggy brained, decreased concentrat ion, trouble losing weight, bloating. checking TSH Liver enzy mes level above reference range 583485376 R74.8 Last CMP (10-12-18) AST 43 AND alt 83 - rechecking today and if elevated will send further lab studies- denies drinking, changes in skin/eye color, dry mouth/eyes , itching Obesity 034386296 E66.9 BMI 33.9 Onychomycosis 275350143 B35.1 left foot first toe onychomyco sis. not initiating oral medication due to elevated liver enzymes. checking labs. Prediabetes 247925157 R7 3.03 A1C 5.8% 12/24/21 - discussed diet and exercise, portion sizes and carb restrictio n, patient agrees- exercise 30 mins 5x week [id number] MARY CIFUENTES [facility] [address] [place] [address] 01/28/2022 10:32:07 01/30/2022 10:18:01 Polycystic ovary syndrome 072186950 E28.2 hx of ovarian cysts, hirsutism, acne on chin, trouble losing weight, fatigue. regular periods that can be heavy. discussed PCOS. Does not was spironolac tone or metformin at this time. Not on OCP. - increase protein- cut back on carb portions and replace simple carbs with complex carbs- drink mainly water Medication monitoring 39 4718029 Z51.81 onychomyco sis group home liver enzyme check [id number] NEHAL LAND DPM [facility] [address] [place] [address] 02/08/2022 13:35:27 02/15/2022 11:33:54 Onychomycosis 031514954 B35.1 Tinea pedis 3566576 B35. 3 Pain in left foot 568922 5933 27827 M79.745 [id number] MARY CIFUENTES [facility] [address] [place] [address] 05/29/2022 13:56:02 05/30/2022 10:22:12 Onychomycosis 596449995 B35.1 improved. no further treatment Obesity 912490748 E66.9 BMI 33.9 [id number] MARY CIFUENTES [facility] [address] [place] [address] 11/11/2022 15:14:28 11/19/2022 10:03:25 Migraine 22441556 G43.909 frontal x 1 monthfor pain taking ibu 400mg with resolution 2x dayHA diary Obesity 322969463 E66.9 BMI 35.3. Patient has tried diet, exercise and continues to do these. Would like to trial GLP-1.She denies fam hx of thyroid cancer, pancreatit is. Medication side effects were reviewed with patient and include MAKENNA, pancreatit is, nausea, vomiting, stomach upset. Patient was shown pen and was shown how to clean area, inject pain, and how often to administer .- start ozempic [id number] MARY CIFUENTES [facility] [address] [place] [address] 12/13/2022 15:37:54 12/13/2022 16:22:30 Obesity 508221557 E66.9 = Patient has tried diet, exercise and continues to do these. Doing well on GLP-1.She denies fam hx of thyroid cancer, pancreatit is. Medication side effects were reviewed with patient and include MAKENNA, pancreatit is, nausea, vomiting, stomach upset. [id number] MARBELLA SMITH NP [facility] [address] [place] [address] 10/04/2023 10:39:51 10/06/2023 16:26:19 Exposure to SARS-CoV-2 094677493 Z20.822 Acute uppe r respiratory infection 10877447 J06.9 Streptococ kristie sore throat 04282293 J02.0 [id number] MARY CIFUENTES [facility] [address] [place] [address] 04/22/2024 13:41:10 04/22/2024 14:49:44 Obesity 586312878 E66.9 - stop soda/sweet tea- continue exercise 3x week at [employer]- given handout with specific goals Prediabetes 351429505 R7 3.03 A1C 5.8% 12/24/21 - discussed diet and exercise, portion sizes and carb restrictio n, patient agrees- exercise 30 mins 5x week Health Concerns Section Related Observation LastModified by Organization Detai ls LastModified Time None Recorded Concern Status LastModified by Organization Details LastModified Time None Recorded Advance Directives Directive N: Payers Encounter Date Sequence Insurance Name Policy Number Policy Johnson Covered Member ID Johnson Member ID Guarantor Name 11/11/2022 1 [facility] [id number] Florecita Louise [id number] Florecita Louise 12/13/2022 1 [facility] [id number] Florecita Louise [id number] Florecita Louise 10/04/2023 SLIDING FEE SCHEDULE - DISCOUNT Florecita Louise 04/22/2024 1 *SELF PAY* Do ra Louise Notes Date Note Type Note Provider Name and Address Organization Details Recorded Time 05/29/2022 text/html Florecita presents fo r fungal infection f/u improved at this time. completed oral treatment. MARY CIFUENTES Attn: Accounting[address] [place], [address], [facility] 05/29/2022 14:55:47 11/11/2022 text/html Florecita presents for weight Patient would like to start GLP-1 medication. denied fam hx thyroid cancer or pancreatitis. patient has been feeling foggy brained, low concentration, having trouble losing weight She is still doing cross fit and dieting - veggies and meats. She had tension headaches, muscle strain, and feels irritable irritable . She has had frontal headaches for the last month that are improved with tylenol. MARY CIFUENTES Attn: Accounting[address] [place], [address], [facility] 11/16/2022 08:06:13 12/13/2022 text/html Florecita presents for weight patient is doing well on glp-1. on her scale she has lots 10 lb on second dose. would like to increase today. she has controlled her eating much better than before. . MARY CIFUENTES Attn: Accounting[address] [facility], [place], [address], [facility] 12/16/2022 11:01:11 10/04/2023 text/html 38 year old patient presents to [facility] [place] for covid and flu symptoms. She complains of sore throat, sinus problems, chills, slight nausea, left ear pain. She denies taking her temperature at home. She states her son had flu and covid the week before [place]. He has since recovered. She states she has been taking OTC medications for symptom relief. MARBELLA SMITH NP Attn: [address] [facility], [place], [address], [facility] 10/04/2023 11:37:28 04/22/2024 text/html Florecita pmhxz obesity and pre-diabetes presents for weight patient states she got down to 160 and then fell off the bandwagon due to life events. She did well on victoza but no longer covered on 340b. She is drinking soda daily as well as sweet tea. She plans to stop starting today. MARY CIFUENTES Attn: [address]ing[address] [facility], [place], [address], [place] [facility] 04/22/2024 14:45:06 OBGyn Episode No OBEpisode recorded.
--- OUTSIDE RECORDS SUMMARY | 2024-11-25 20:13 | XMS_ITS | Patient Health Record ---
Author Organization [facility] Address [address] [place] [address] Care Team Providers Care Credentialing Analyst Name Role Phone Timothy Bentley Unavailable [phone] Reason For Referral No Information Problems Problem Type SNOMED Code ICD Code Onset Dates Problem Status W/U Status Risk Notes Problem Chronic fatigue syndrome (disorder) (82016068) Chronic fatigue, unspecified (R53.82) Active confirmed Vital Signs Temperature 97.7 degrees Fahrenheit 06/29/2024 Respiratory Rate 18 /min 06/29/2024 Oximetry 99 % 06/29/2024 Blood pressure diastolic 82 mm Hg 06/29/2024 Height 62.6 in 09/21/2024 Blood pressure systolic 135 mm Hg 06/29/2024 Weight 202.0 lbs 09/21/2024 BMI 36.24 kg/m2 09/21/2024 Encounters Encounter Location Date Provider Diagnosis [facility] ([address]) [address] [place] [address] 06/29/2024 Timothy Bentley Chronic fatigue, unspecified R53.82 ; Abnormal weight gain R63.5 ; Other fatigue R53.83 and Other malaise R53.81 [facility] ([address]) [address] [place] [address] 07/06/2024 Timothy Bentley Chronic fatigue, unspecified R53.82 ; Abnormal weight gain R63.5 ; Other fatigue R53.83 and Other malaise R53.81 [facility] ([address]) [address] [place] [address] 07/13/2024 Timothy Bentley Chronic fatigue, unspecified R53.82 ; Abnormal weight gain R63.5 ; Other fatigue R53.83 and Other malaise R53.81 [facility] [place] ([address]) [address] [place] [address] 07/20/2024 Timothy Win Chronic fatigue, unspecified R53.82 ; Abnormal weight gain R63.5 ; Other fatigue R53.83 and Other malaise R53.81 [facility] [place] ([address]) [address] [place] [address] 07/27/2024 Timothy Win Chronic fatigue, unspecified R53.82 ; Abnormal weight gain R63.5 ; Other fatigue R53.83 and Other malaise R53.81 [facility] ([address]) [address] [place] [address] 08/03/2024 Timothy Win Chronic fatigue, unspecified R53.82 ; Abnormal weight gain R63.5 ; Other fatigue R53.83 and Other malaise R53.81 [facility] [place] ([address]) [address] [place] [address] 08/10/2024 Timothy Win Chronic fatigue, unspecified R53.82 ; Abnormal weight gain R63.5 ; Other fatigue R53.83 and Other malaise R53.81 [facility] [place] ([address]) [address] [place] [address] 08/17/2024 Timothy Win Chronic fatigue, unspecified R53.82 ; Abnormal weight gain R63.5 ; Other fatigue R53.83 and Other malaise R53.81 [facility] [place] ([address]) [address] [place] [address] 08/24/2024 Timothy Win Chronic fatigue, unspecified R53.82 ; Abnormal weight gain R63.5 ; Other fatigue R53.83 and Other malaise R53.81 [facility] [place] ([address]) [address] [place] [address] 08/31/2024 Timothy Win Chronic fatigue, unspecified R53.82 ; Abnormal weight gain R63.5 ; Other fatigue R53.83 and Other malaise R53.81 [facility] ([address]) [address] [place] [address] 09/14/2024 Timothy Bentley Chronic fatigue, unspecified R53.82 ; Abnormal weight gain R63.5 ; Other fatigue R53.83 and Other malaise R53.81 [facility] ([address]) [address] [place] [address] 09/21/2024 Timothy Bentley Chronic fatigue, unspecified R53.82 ; Abnormal weight gain R63.5 ; Other fatigue R53.83 and Other malaise R53.81 Assessments Encounter Date Diagnosis (ICD Code) Assessment Notes Treatment Notes Treatment Clinical Notes Section Notes 06/29/2024 Chronic fatigue, unspecified (ICD-10 - R53.82) 06/29/2024 Abnormal weight gain (ICD-10 - R63.5) 07/06/2024 Chronic fatigue, unspecified (ICD-10 - R53.82) 07/06/2024 Abnormal weight gain (ICD-10 - R63.5) 07/13/2024 Chronic fatigue, unspecified (ICD-10 - R53.82) 07/13/2024 Abnormal weight gain (ICD-10 - R63.5) 07/20/2024 Chronic fatigue, unspecified (ICD-10 - R53.82) 07/20/2024 Abnormal weight gain (ICD-10 - R63.5) 07/27/2024 Chronic fatigue, unspecified (ICD-10 - R53.82) 07/27/2024 Abnormal weight gain (ICD-10 - R63.5) 08/03/2024 Chronic fatigue, unspecified (ICD-10 - R53.82) 08/03/2024 Abnormal weight gain (ICD-10 - R63.5) 08/10/2024 Chronic fatigue, unspecified (ICD-10 - R53.82) 08/10/2024 Abnormal weight gain (ICD-10 - R63.5) 08/17/2024 Chronic fatigue, unspecified (ICD-10 - R53.82) 08/17/2024 Abnormal weight gain (ICD-10 - R63.5) 08/24/2024 Chronic fatigue, unspecified (ICD-10 - R53.82) 08/24/2024 Abnormal weight gain (ICD-10 - R63.5) 08/31/2024 Chronic fatigue, unspecified (ICD-10 - R53.82) 08/31/2024 Abnormal weight gain (ICD-10 - R63.5) 09/14/2024 Chronic fatigue, unspecified (ICD-10 - R53.82) 09/14/2024 Abnormal weight gain (ICD-10 - R63.5) 09/21/2024 Chronic fatigue, unspecified (ICD-10 - R53.82) 09/21/2024 Abnormal weight gain (ICD-10 - R63.5) 09/21/2024 Other fatigue (ICD-10 - R53.83) 09/14/2024 Other fatigue (ICD-10 - R53.83) 08/31/2024 Other fatigue (ICD-10 - R53.83) 08/24/2024 Other fatigue (ICD-10 - R53.83) 08/17/2024 Other fatigue (ICD-10 - R53.83) 08/10/2024 Other fatigue (ICD-10 - R53.83) 08/03/2024 Other fatigue (ICD-10 - R53.83) 07/27/2024 Other fatigue (ICD-10 - R53.83) 07/20/2024 Other fatigue (ICD-10 - R53.83) 07/13/2024 Other fatigue (ICD-10 - R53.83) 07/06/2024 Other fatigue (ICD-10 - R53.83) 06/29/2024 Other fatigue (ICD-10 - R53.83) 07/06/2024 Other malaise (ICD-10 - R53.81) 07/13/2024 Other malaise (ICD-10 - R53.81) 07/20/2024 Other malaise (ICD-10 - R53.81) 07/27/2024 Other malaise (ICD-10 - R53.81) 08/03/2024 Other malaise (ICD-10 - R53.81) 08/10/2024 Other malaise (ICD-10 - R53.81) 08/17/2024 Other malaise (ICD-10 - R53.81) 08/24/2024 Other malaise (ICD-10 - R53.81) 08/31/2024 Other malaise (ICD-10 - R53.81) 09/14/2024 Other malaise (ICD-10 - R53.81) 09/21/2024 Other malaise (ICD-10 - R53.81) 06/29/2024 Other malaise (ICD-10 - R53.81) Plan Of Treatment No Information
--- OUTSIDE RECORDS SUMMARY | 2024-11-25 20:13 | XMS_ITS ---
Author Organization [facility] Address [address] [place] [address] Care Team Providers Care Utilities Manager Name Role Phone McTimothy [phone] REASON FOR VISIT [facility], interested in peptide therapy - prior Victoza losing 50 lbs but lost insurance, no side effects, appetite suppression lasting 3-4 days, Desired weight loss: previous shot at home -58lbs. -3.0 since last visit , - 11.1 total weight loss, No history MTC or MEN2 or pancreatitis, Concerned about future DM and OA Vital Signs Height 62.6 in 09/21/2024 Weight 202.0 lbs 09/21/2024 BMI 36.24 kg/m2 09/21/2024 Encounters Encounter Location Date Provider Diagnosis [facility] [place] ([address]) [address] [address] 09/21/2024 Timothy Bentley Chronic fatigue, unspecified R53.82 ; Abnormal weight gain R63.5 ; Other fatigue R53.83 and Other malaise R53.81 Assessments Encounter Date Diagnosis (ICD Code) Assessment Notes Treatment Notes Treatment Clinical Notes Section Notes 09/21/2024 Chronic fatigue, unspecified (ICD-10 - R53.82) 09/21/2024 Abnormal weight gain (ICD-10 - R63.5) 09/21/2024 Other fatigue (ICD-10 - R53.83) 09/21/2024 Other malaise (ICD-10 - R53.81) Plan Of [...] ounding Adverse Reaction: None Progress Notes * Katarina LOUISEB:1985 (39 yo F)Acc No.[id number]:09/21/2024 Weight Loss Patient: Florecita NASCIMENTO Provider: Conrado Bentley MD :1985 A ge:39 Y S ex:Female Date:09/21/2024 Address:[address] [place] [address] Subjective: * Chief Complaints: * 1 . [...] file. * Medical History: Objective: * Vitals: H t: 62.6 in, Wt: 202.0 lbs, BMI:36.24Index. Assessment: * Assessment: 1. A bnormal weight [...] Information: * Visit Code: * Procedure Codes: 59268 [facility] - Weekly (tirzepatide) (0.5-5 mg) Tier 1. * Electronic signature of Melia Bentley MD, FAAAAI on 11/25/2024 at 08:12 PM TERRAZZO FINISHER HELPER Sign off status: Pending * Provider: Conraod Bentley MD Date: 1 11/22/2023 Generated for Trina fine/Marisol/eTlyndonitting on: 0 11/25/2024 08:12 PM TERRAZZO FINISHER HELPER History and Physical Notes * HPI (History [...]
--- OUTSIDE RECORDS SUMMARY | 2024-11-25 20:13 | XMS_ITS ---
Author Organization [facility] Address [address] [place] [address] Care Team Providers Care Supervisor Belt And Link Assembly Name Role Phone McTimothy Unavailable [phone] REASON FOR VISIT [facility], [...] Provider Diagnosis [facility] [place] ([address]) [address] [address] 10/11/2024 Timothy Bentley Chronic fatigue, unspecified R53.82 ; Abnormal weight gain R63.5 ; Other fatigue R53.83 and Other malaise R53.81 Assessments Encounter Date Diagnosis (ICD Code) Assessment Notes Treatment Notes Treatment Clinical Notes Section Notes 10/11/2024 Chronic fatigue, unspecified (ICD-10 - R53.82) 10/11/2024 Abnormal weight gain (ICD-10 - R63.5) 10/11/2024 Other fatigue (ICD-10 - R53.83) 10/11/2024 Other malaise (ICD-10 - R53.81) Plan Of [...] Notes * Lb LOUISEaDOB:1985 (39 yo F)Acc No.[id number]:10/11/2024 Weight Loss Patient: Florecita NASCIMENTO Provider: Conrado Bentley MD :1985 A ge:39 Y S ex:Female Date:10/11/2024 Address:[address] [place] [address] Subjective: * Chief Complaints: * 1 . [...] Information: * Visit Code: * Procedure Codes: 16112 [facility] - Weekly (tirzepatide) (0.5-5 mg) Tier 1. * Electronic signature of Patr sal Bentley MD, FAAAAI on 11/25/2024 at 08:12 PM EXECUTIVE PERSONAL ASSISTANT Sign off status: Pending * Provider: Conrado Bentley MD Date: 0 10/11/2024 Generated for Trina fine/Marisol/Eleni on: 0 11/25/2024 08:12 PM EXECUTIVE PERSONAL ASSISTANT History and Physical Notes * HPI (History [...]
[2024-11-25 20:53] VITALS: BP 146/87; PULSE 98; RESP 14; TEMP 36.7; O2SAT 98
--- NOTE | 2024-11-25 20:57 | ECG_ITS ---
Test Date: 2024-11-25 21:38:57 Measurements Intervals [place] Rate: 89 P: 52 NC: 157 QRS: 19 QRSD: 94 T: 36 QT: 374 QTc: 456 Interpretive Statements SINUS RHYTHM NORMAL ECG No previous ECG available for comparison Electronically Signed On 11-26-2024 06:27:11 RUBBER MIXER by Sergio Alaniz D.O.
[2024-11-25 22:44] LABS: Basophils Percent Auto 0.4 % (0.2-1.2); Eosinophils Absolute Auto 0.2 K/mm3 (0-0.3); Eosinophils Percent Auto 2.4 % (0-4.4); Hematocrit 37.3 % (37.0-47.0); Hemoglobin 11.8 g/dL (12.0-15.0); Immature Granulocyte Absolute 0.03 K/mm3 (0.00-0.031); Immature Granulocyte Percent A 0.4 % (0-0.5); Immature Platelet Fraction Pct 16.1 % (0.9-11.2); Lymphocytes Absolute Auto 2.43 K/mm3 (0.9-3.2); Lymphocytes Percent Auto 30.9 % (18.3-44.2); Mean Corpuscular HGB Conc 31.6 g/dl (32-36); Mean Corpuscular Hemoglobin 27.4 pg (26-34); Mean Corpuscular Volume 86.7 fl (80-100); Mean Platelet Volume 13.4 fl (7.4-10.4); Monocytes Absolute Auto 0.4 K/mm3 (0.1-0.6); Monocytes Percent Auto 4.7 % (2.6-8.5); Neutrophils Absolute Auto 4.8 K/mm3 (1.3-6.7); Neutrophils Percent Auto 61.2 % (45.5-73.1); Platelet Count Result 172 k/mm3 (150-375); Red Cell Distribution Width 14.6 % (11.5-14.5); White Blood Count 7.9 K/mm3 (4.5-10.0)
[2024-11-25 22:52] LABS: INR 0.9; Prothrombin Time 12.7 Seconds (11.1-14.7)
[2024-11-25 22:53] LABS: Alanine Aminotransferase 88 U/L (6-35); Albumin Level 4.5 g/dL (3.5-5.1); Alkaline Phosphatase 70 U/L (38-126); Anion Gap 10 mmol/L (4-12); Aspartate Amino Transferase 56 U/L (14-36); Bilirubin,Total 0.4 mg/dL (0.2-1.3); Blood Urea Nitrogen 13 mg/dL (7-17); Calcium 9.6 mg/dL (8.4-10.2); Carbon Dioxide 26 mmol/L (22-30); Chloride 103 mmol/L (98-107); Estimated Glomerular Filt Rate > 60; Glucose 127 mg/dL (65-110); Lipase 141 U/L (23-300); Partial Thromboplastin Time 26.5 Seconds (22.3-36.8); Potassium 3.6 mmol/L (3.4-5.0); Sodium 139 mmol/L (137-145)
[2024-11-25 23:22] LABS: Troponin I < 0.012 ng/mL (0.000-0.034)
[2024-11-25 23:39] VITALS: BP 140/76; PULSE 80; RESP 14; TEMP 36.6; O2SAT 98
[2024-11-26] VITALS (14 sets, daily range): BP systolic 122–139; BP diastolic 69–79; PULSE 70–94; RESP 13–20; O2SAT 95–100
--- OUTSIDE RECORDS SUMMARY | 2024-11-26 00:56 | XMS_ITS ---
Author Organization [facility] Address [address] [place] [address] Care Team Providers Care Geospatial Applications Developer Name Role Phone McTimothy Unavailable [phone] REASON FOR VISIT [facility], [...] Provider Diagnosis [facility] [place] ([address]) [address] [address] 09/27/2024 Timothy Bentley Chronic fatigue, unspecified R53.82 [...] Notes * Lb LOUISEaDOB:1985 (39 yo F)Acc No.[id number]:09/27/2024 Weight Loss Patient: Florecita NASCIMENTO Provider: Conrado Bentley MD :1985 A ge:39 Y S ex:Female Date:09/27/2024 Address:[address] [place] [address] Subjective: * Chief Complaints: * 1 . [...] Information: * Visit Code: * Procedure Codes: 99079 [facility] - Weekly (tirzepatide) (0.5-5 mg) Tier 1. * Electronic signature of Patr sal Bentley MD, FAAAAI on 11/26/2024 at 12:56 AM COLLAR CUTTER Sign off status: Pending * Provider: Conrado Bentley MD Date: 1 11/28/2023 Generated for Trina fine/Marisol/Eleni on: 0 11/26/2024 12:56 AM COLLAR CUTTER History and Physical Notes * HPI (History [...]
--- OUTSIDE RECORDS SUMMARY | 2024-11-26 00:56 | XMS_ITS | Continuity of Care Document ---
Author Organization [facility] Address [address] [place] [address] Phone Care Team Providers Care [place] Supervisor Name Role Phone Pam ROUSSEAU, Jodi Unavailable [...] QUADRIV 3 DOSE IM OFFICE/OUTPATIENT VISIT, EST SHVG SKN LES 1 LES T/A/L DIAM 0.6-1.0 CM BLOOD COUNT; COMPLETE (CBC), AUTOMATED (HGB, HCT, RBC, WBC AND PLATELET COUNT) CALCIFEDIOL (25-OH VITAMIN D-3) 009 GLUCOSE BLOOD TEST THYROID STIMULATING HORMONE (TSH) LIPID PANEL OFFICE/OUTPATIENT VISIT, EST CUL FNGI MOLD/YEAST PRSMPTV ID SKN HAIR/ NAIL COLLECTION OF VENOUS BLOOD BY VENIPUNCTU RE COMPRE METAB PANEL CHYLMD TRACH, DNA, AMP PROBE N.GONORRHOEAE, DNA, AMP PROB URINALYSIS; MICROSCOPIC ONLY OFFICE OUTPT EST 40 MIN CULTURE, BACTERIAL; QUANTITATIVE COLONY COUNT, URINE CYTP C/V AUTO THIN LYR PREPJ SCR MNL RES CR PHYS URNLS DIP STICK/TABLET RGNT AUTO W/O TIFF HUMAN PAPILLOMA VIRUS VACCINE QUADRIV 3 DOSE IM Limit oral eval problem focused 008 Periapical [...] 1+ FETUSES HOSPITAL DISCHARGE DAY MANAGEMENT; 30 DE NUTES OR LESS OBSTETRICAL CARE SBSQ HOSP CARE ID D 15 MIN URNLS DIP STICK/TABLET RGNT AUTO W/O TIFF OFFICE OUTPT EST 25 MIN CULTURE, PRESUMPTIVE, PATHOGENIC ORGANIS MS, SCREENING ONLY; GLUCOSE BLOOD TEST OFFICE OUTPT EST 25 MIN URNLS DIP STICK/TABLET RGNT AUTO W/O TIFF PROTEIN, TOTAL, EXCEPT BY REFRACTOMETRY; URINE URNLS DIP STICK/TABLET RGNT AUTO W/O TIFF GLUCOSE BLOOD TEST OFFICE OUTPT EST 25 MIN OFFICE CONSULT, 15 MIN, 3 KE Y COMPS: PROB FOCUS HX; PROB FOCUS EXAM; [facility] GLUCOSE BLOOD TEST OFFICE OUTPT EST 25 MIN URNLS DIP STICK/TABLET RGNT AUTO W/O TIFF OFFICE OUTPT EST 25 MIN URNLS DIP STICK/TABLET RGNT AUTO W/O TIFF GLUCOSE; POST GLUCOSE DOSE (INCLUDES GLU COSE) OFFICE CONSULT, 15 MIN, 3 KE Y COMPS: PROB FOCUS HX; PROB FOCUS EXAM; [facility] OFFICE/OUTPATIENT VISIT, EST GLUCOSE BLOOD TEST URNLS DIP STICK/TABLET RGNT AUTO W/O TIFF CULTURE, BACTERIAL; QUANTITATIVE COLONY COUNT, URINE OFFICE OUTPT EST 25 MIN GLUCOSE BLOOD TEST URNLS DIP STICK/TABLET RGNT AUTO W/O TIFF OFFICE CONSULT, 15 MIN, 3 KE Y COMPS: PROB FOCUS HX; PROB FOCUS EXAM; [facility] OFFICE CONSULT, 15 MIN, 3 KE Y COMPS: PROB FOCUS HX; PROB FOCUS EXAM; [facility] SMEAR, WET MOUNT, SALINE/INK CHYLMD TRACH, DNA, AMP PROBE CYTP C/V FLU AUTO THIN MNL PHYS 006 URNLS DIP STICK/TABLET RGNT AUTO W/O TIFF N.GONORRHOEAE, DNA, AMP PROB OFFICE OUTPT EST 25 MIN OFFICE CONSULT, 15 MIN, 3 KE Y COMPS: PROB FOCUS HX; PROB FOCUS EXAM; STRTFWD OFFICE O/P EST 5 MIN OFFICE CONSULT, 15 MIN, 3 KE Y COMPS: PROB FOCUS HX; PROB FOCUS EXAM; STRTFWD OFFICE CONSULT, 15 MIN, 3 KE Y COMPS: PROB FOCUS HX; PROB FOCUS EXAM; STRWD CULTURE, BACTERIAL; QUANTITATIVE COLONY COUNT, URINE HEMOGLOBIN ELECTROPHORESIS OB PANEL ANTIBODY; HIV-1 URNLS DIP STICK/TABLET RGNT AUTO W/O TIFF OFFICE OUTPT EST 25 MIN LEAD SKIN TEST; TUBERCULOSIS, INTRADERMAL Oct OFFICE OUTPT [...] Encounter [facility], [address], [place], [place], [address] , tel:[phone] [facility] No Information 4 Pam Zapata. [address], [place], [place], [address], . tel:[phone] [facility], [address], [place], [place], [address] , tel:[phone] [facility] No Information 2 Pam Zapata. [address], [place], [place], [address], . tel:[phone] [facility], [address], [place], [place], [address] , [place] tel: [phone] [facility] No Information 2 Management Case. [address], [place], [place], [address], [place]. tel:[phone] Consulting Provider: Day Travis, [address], [place], [address]. tel:[phone] [facility], [address], [place], [place], [address] , [place] tel: [phone] [facility] [place] [facility] examination 2 Karin Sheryl. [address], [place], [place], [address]. tel:[phone] [facility], [address], [place], [place], [address] , tel: [phone] [facility] No Information 2 No Information [facility], [address], [place], [place], [address] , [place] tel: [phone] [facility] amenorrhea (chief complaint) examination or test, unconfirmed 2 No Information [facility], [address], [place], [place], [address] , [place] tel: [phone] [facility] Other specified chlamydial infection 2 Pam Zapata. [address], [place], [place], [address], [place]. tel:[phone] [facility], [address], [place], [place], [address] , [place] tel: [phone] [facility] Other specified chlamydial infection 2 Pam Zapata. [address], [place], [place], [address], [place]. tel:[phone] OFFICE/OUTPA TIENT VISIT, EST [facility], [address], [place], [place], [address] , [place] tel: [phone] [facility] f/u (chief complaint) Screening examination for venereal disease 2 Pam Zapata. [address], [place], [place], [address], [place]. tel:[phone] [facility], [address], [place], [place], [address] , [place] tel: [phone] [facility] Candidiasis of vulva and vagina 2 Pam Conwayah. [address], [place], [place], [address], [place]. tel:[phone] OFFICE/OUTPA TIENT VISIT, EST [facility], [address], [place], [place], [address] , [place] tel: [phone] [facility] IUD insertion (chief complaint) Other general counseling and advice on contraceptive management 2 Pam Zapata. [address], [place], [place], [address], [place]. tel:[phone] OFFICE/OUTPA TIENT VISIT, EST [facility], [address], [place], [place], [address] , [place] tel: [phone] [facility] chlamydia f/u (chief complaint) Other specified chlamydial infection 1 Pam Conwayah. [address], [place], [place], [address], [place]. tel:[phone] OFFICE/OUTPA TIENT VISIT, EST [facility], [address], [place], [place], [address] , [place] tel: [phone] [facility] ANDRADE (chief complaint) Leukorrhea, not specified as infectiveOthe r general counseling and advice on contraceptive managementScr eening for malignant neoplasms of the cervix 1 Pam Zapata. [address], [place], [place], [address], [place]. tel:[phone] [facility], [address], [place], [place], [address] , [place] tel: [phone] [facility] Screening for unspecified condition 1 Pam Zapata. [address], [place], [place], [address], [place]. tel:[phone] OFFICE/OUTPA TIENT VISIT, EST [facility], [address], [place], [place], [address] , [place] tel: [phone] [facility] IUD removal (chief complaint) Other general counseling and advice on contraceptive managementOth er specified chlamydial infection 1 Pam Zapata. [address], [place], [place], [address], [place]. tel:[phone] OFFICE/OUTPA TIENT VISIT, EST [facility], [address], [place], [place], [address] , [place] tel: [phone] [facility] PT only (chief complaint)a bdominal discomfort (chief complaint) Surveillance of intrauterine contraceptive device 1 Lenard Shepherd. [address], [place], [place], [address], [place]. tel:[phone] OFFICE/OUTPA TIENT VISIT, EST [facility], [address], [place], [place], [address] , [place] tel: [phone] [facility] IUD check (chief complaint) Surveillance of intrauterine contraceptive device 0 Pam Zapata. [address], [place], [place], [address], [place]. tel:[phone] [facility], [address], [place], [place], [address] , [place] tel: [phone] Historic Immunization Location No Information 9 No Information OFFICE OUTPT EST 10 MIN [facility], [address], [place], [place], [address] , [place] tel: [phone] [facility] VACCIN FOR SINGL DIS NOS 9 Pam Zapata. [address], [place], [place], [address], [place]. tel:[phone] OFFICE/OUTPA TIENT VISIT, EST [facility], [address], [place], [place], [address] , [place] tel: [phone] [facility] DERMATOPHYTOS IS OF NAILSKIN HYPERTRO/ATRO PH NOS 0 9 Pam Jodi. [address], [place], [place], [address], [place]. tel:[phone] OFFICE/OUTPA TIENT VISIT, EST [facility], [address], [place], [place], [address] , [place] tel: [phone] [facility] DERMATOMYCOSI S NOS 9 No Information OFFICE OUTPT EST 40 MIN [facility], [address], [place], [place], [address] , [place] tel: [phone] [facility] OTH SPECFD VIRAL WARTSROUTINE SOIL CONSERVATION TECHNICIAN EXAMINATIONDE RMATOPHYTOSIS OF NAIL 9 [facility] Jodi. [address], [place], [place], [address], [place]. tel:[phone] [facility], [address], [place], [place], [address] , [place] tel: [phone] [facility] DENTAL EXAMINATION 8 No Information OFFICE/OUTPA TIENT VISIT, EST [facility], [address], [place], [place], [address] , [place] tel: [phone] [facility] VIRAL WARTS NOS 7 No Information OFFICE OUTPT EST 10 MIN [facility], [address], [place], [place], [address] , [place] tel: [phone] [facility] IUD SURVEILLANCE 6 No Information [facility], [address], [place], [place], [address] , [place] tel: [phone] [facility] INSERTION OF IUD 6 No Information OFFICE CONSULT, 15 MIN, 3 PERSAUD COMPS: PROB FOCUS HX; PROB FOCUS EXAM; STRTFWD [facility], [address], [place], [place], [address] , [place] tel: [phone] [facility] COUNSELING NOS 6 No Information OFFICE OUTPT EST 25 MIN [facility], [address], [place], [place], [address] , [place] tel: [phone] [facility] ROUT POSTPART FOLLOW-UP 6 Pam Jodi. [address], [place], [place], [address], [place]. tel:[phone] [facility], [address], [place], [place], [address] , [place] tel: [phone] [facility] NORMAL DELIVERYLABOR ATORY EXAMINATION 6 Pam Jodi. [address], [place], [place], [address], [place]. tel:[phone] HOSPITAL DISCHARGE DAY MANAGEMENT; 30 MINUTES OR LESS [facility], [address], [place], [place], [address] , [place] tel: [phone] [facility] NORMAL DELIVERYDEL W 1 DEG LACERAT-DELDE LIVER-SINGLE LIVEBORN 6 No Information OFFICE OUTPT EST 25 MIN [facility], [address], [place], [place], [address] , [place] tel: [phone] [facility] SUPERVIS NORMAL 1ST PREG 6 Pam Jodi. [address], [place], [place], [address], [place]. tel:[phone] OFFICE OUTPT EST 25 MIN [facility], [address], [place], [place], [address] , [place] tel:[phone] [facility] SUPERVIS OTH NORMAL PREG 200 6 Pam Jodi. [address], [place], [place], [address], [place]. tel:[phone] [facility], [address], [place], [place], [address] , [place] tel: [phone] [facility] LABORATORY EXAMINATION 2- 6 Pam Jodi. [address], [place], [place], [address], [place]. tel:[phone] OFFICE OUTPT EST 25 MIN [facility], [address], [place], [place], [address] , [place] tel: [phone] [facility] SUPERVIS OTH NORMAL PREG 7-200 6 Pam Jodi. [address], [place], [place], [address], [place]. tel:[phone] OFFICE CONSULT, 15 MIN, 3 PERSAUD COMPS: PROB FOCUS HX; PROB FOCUS EXAM; STRTFWD [facility], [address], [place], [place], [address] , [place] tel: [phone] [facility] COUNSELING NOS 1- 6 No Information OFFICE OUTPT EST 25 MIN [facility], [address], [place], [place], [address] , [place] tel: [phone] [facility] SUPERVIS OTH NORMAL PREG 3-200 6 Pam Jodi. [address], [place], [place], [address], [place]. tel:[phone] OFFICE OUTPT EST 25 MIN [facility], [address], [place], [place], [address] , [place] tel: [phone] [facility] SUPERVIS OTH NORMAL PREG 4-200 6 Pam Jodi. [address], [place], [place], [address], [place]. tel:[phone] OFFICE CONSULT, 15 MIN, 3 PERSAUD COMPS: PROB FOCUS HX; PROB FOCUS EXAM; STRTFWD [facility], [address], [place], [place], [address] , [place] tel: [phone] [facility] COUNSELING NOS 1- 6 No Information OFFICE/OUTPA TIENT VISIT, EST [facility], [address], [place], [place], [address] , [place] tel: [phone] [facility] SUPERVIS OTH NORMAL PREG Jan- 6 Pam Jodi. [address], [place], [place], [address], [place]. tel:[phone] OFFICE OUTPT EST 25 MIN [facility], [address], [place], [place], [address] , [place] tel: [phone] [facility] SUPERVIS OTH NORMAL PREG Dec-0 6-200 6 Pam Jodi. [address], [place], [place], [address], [place]. tel:[phone] OFFICE CONSULT, 15 MIN, 3 PERSAUD COMPS: PROB FOCUS HX; PROB FOCUS EXAM; STRTFWD [facility], [address], [place], [place], [address] , [place] tel: [phone] [facility] [place] ADJUSTMENT REACTION NOS Dec-0 3-200 6 No Information OFFICE CONSULT, 15 MIN, 3 PERSAUD COMPS: PROB FOCUS HX; PROB FOCUS EXAM; STRTFWD [facility], [address], [place], [place], [address] , [place] tel: [phone] [facility] ADJUSTMENT REACTION NOS 4-200 6 No Information OFFICE OUTPT EST 25 MIN [facility], [address], [place], [place], [address] , [place] tel: [phone] [facility] SUPERVIS OTH NORMAL PREGURIN TRACT INFECTION NOS 200 6 Pam Jodi. [address], [place], [place], [address], [place]. tel:[phone] OFFICE CONSULT, 15 MIN, 3 PERSAUD COMPS: PROB FOCUS HX; PROB FOCUS EXAM; STRTFWD [facility], [address], [place], [place], [address] , [place] tel: [phone] [facility] ECONOMIC PROBLEM 6 No Information OFFICE O/P EST 5 MIN [facility], [address], [place], [place], [address] , [place] tel: [phone] [facility] SUPERVIS OTH NORMAL PREGFOLLOW-UP EXAM NOS 6 No Information OFFICE CONSULT, 15 MIN, 3 PERSAUD COMPS: PROB FOCUS HX; PROB FOCUS EXAM; STRTFWD [facility], [address], [place], [place], [address] , [place] tel: [phone] [facility] ADJUSTMENT REACTION NOS 6 No Information OFFICE CONSULT, 15 MIN, 3 PERSAUD COMPS: PROB FOCUS HX; PROB FOCUS EXAM; STRTFWD [facility], [address], [place], [place], [address] , [place] tel: [phone] [facility] ECONOMIC PROBLEM 6 No Information OFFICE OUTPT EST 25 MIN [facility], [address], [place], [place], [address] , [place] tel: [phone] [facility] SUPERVIS OTH NORMAL PREG 6 Pam Jodi. [address], [place], [place], [address], [place]. [phone] OFFICE OUTPT EST 25 MIN [facility], [address], [place], [place], [address] , [place] tel: [phone] [facility] OTITIS MEDIA NOS 6 Lenard Shepherd. [address], [place], [place], [address], [place]. tel:[phone] OFFICE CONSULT, 15 MIN, 3 PERSAUD COMPS: PROB FOCUS HX; PROB FOCUS EXAM; STRTFWD [facility], [address], [place], [place], [address] , [place] tel: [phone] [facility] ADJUSTMENT REACTION NOS 6 No Information OFFICE O/P EST 5 MIN [facility], [address], [place], [place], [address] , [place] tel: [phone] [facility] IRREGULAR MENSTRUATION 6 Lenard Shepherd. [address], [place], [place], [address], [place]. tel:[phone] Family History Family Member Type Diagnosis Age At Onset No Information Immunizations Vaccine Date Status Comments HUMAN PAPILLOMA VIRUS VACCIN E QUADRIV 3 DOSE IM administered Source: New Immuniza tion Record HUMAN PAPILLOMA VIRUS VACCIN E QUADRIV 3 DOSE IM administered Source: New Immuniza tion Record Payers Payer name Insurance type Covered libertarian ID Authoriza tion(s) Medicaid - Medical [id number] Social History Type Description Quantity Date Captured Comments Sex Female Smoking Status No Information Chief Complaint And Reason For Visit No Information Reason For Referral Reason For Referral No Information Plan Of Treatment Date Type Action Status Future Order: Lab Order CHLAMYDI A/N. GONORRHOEAE DNA, SDA ([id number]), Appointment on: , Sent on: Sent Future Order: Lab Order CHLAMYDI A/N. GONORRHOEAE DNA, SDA ([id number]), Appointment on: , Sent on: Sent Future Order: Lab Order CHLAMYDI A/N. GONORRHOEAE DNA, SDA ([id number]), Appointment on: , Sent on: Sent Future Order: Lab Order Wet Prep (Wet Prep), Appointment on: Ordered Future Order: Lab Order CHLAMYDI A/N. GONORRHOEAE DNA, SDA ([id number]), Appointment on: , Sent on: Sent Future Order: Lab Order THINPREP -TIS W/RFL HPV ([id number]), Appointment on: , Sent on: Sent Future [...]
--- OUTSIDE RECORDS SUMMARY | 2024-11-26 00:56 | XMS_ITS | Patient Health Record ---
Author Organization [facility] Address [address] [place] [address] Care Team Providers Care Weaving Teacher Name Role Phone Timothy Bentley Unavailable [phone] Reason For Referral No Information Problems Problem Type SNOMED Code ICD Code Onset Dates Problem Status W/U Status Risk Notes Problem Chronic fatigue syndrome (disorder) (23001210) Chronic fatigue, unspecified (R53.82) Active confirmed Vital Signs Temperature 97.7 degrees Fahrenheit 06/29/2024 Respiratory Rate 18 /min 06/29/2024 Oximetry 99 % 06/29/2024 Blood pressure diastolic 82 mm Hg 06/29/2024 Height 62.6 in 09/21/2024 Blood pressure systolic 135 mm Hg 06/29/2024 Weight 202.0 lbs 09/21/2024 BMI 36.24 kg/m2 09/21/2024 Encounters Encounter Location Date Provider Diagnosis [facility] ([address]) [address] [place] [address] 06/29/2024 Timothy Bentley Chronic fatigue, unspecified R53.82 ; Abnormal weight gain R63.5 ; Other fatigue R53.83 and Other malaise R53.81 [facility] ([address]) [address] [place] [address] 07/06/2024 Timothy Bentley Chronic fatigue, unspecified R53.82 ; Abnormal weight gain R63.5 ; Other fatigue R53.83 and Other malaise R53.81 [facility] ([address]) [address] [place] [address] 07/13/2024 Timothy Bentley Chronic fatigue, unspecified R53.82 ; Abnormal weight gain R63.5 ; Other fatigue R53.83 and Other malaise R53.81 [facility] [place] ([address]) [address] [place] [address] 07/20/2024 Timothy Win Chronic fatigue, unspecified R53.82 ; Abnormal weight gain R63.5 ; Other fatigue R53.83 and Other malaise R53.81 [facility] [place] ([address]) [address] [place] [address] 07/27/2024 Timothy Win Chronic fatigue, unspecified R53.82 ; Abnormal weight gain R63.5 ; Other fatigue R53.83 and Other malaise R53.81 [facility] ([address]) [address] [place] [address] 08/03/2024 Timothy Win Chronic fatigue, unspecified R53.82 ; Abnormal weight gain R63.5 ; Other fatigue R53.83 and Other malaise R53.81 [facility] [place] ([address]) [address] [place] [address] 08/10/2024 Timothy Win Chronic fatigue, unspecified R53.82 ; Abnormal weight gain R63.5 ; Other fatigue R53.83 and Other malaise R53.81 [facility] [place] ([address]) [address] [place] [address] 08/17/2024 Timothy Win Chronic fatigue, unspecified R53.82 ; Abnormal weight gain R63.5 ; Other fatigue R53.83 and Other malaise R53.81 [facility] [place] ([address]) [address] [place] [address] 08/24/2024 Timothy Win Chronic fatigue, unspecified R53.82 ; Abnormal weight gain R63.5 ; Other fatigue R53.83 and Other malaise R53.81 [facility] [place] ([address]) [address] [place] [address] 08/31/2024 Timothy Win Chronic fatigue, unspecified R53.82 ; Abnormal weight gain R63.5 ; Other fatigue R53.83 and Other malaise R53.81 [facility] ([address]) [address] [place] [address] 09/14/2024 Timothy Bentley Chronic fatigue, unspecified R53.82 ; Abnormal weight gain R63.5 ; Other fatigue R53.83 and Other malaise R53.81 [facility] ([address]) [address] [place] [address] 09/21/2024 Timothy Bentley Chronic fatigue, unspecified R53.82 [...]
--- OUTSIDE RECORDS SUMMARY | 2024-11-26 00:56 | XMS_ITS ---
Author Organization [facility] Address [address] [place] [address] Care Team Providers Care Marketing Support Coordinator Name Role Phone McTimothy [phone] REASON FOR VISIT [facility], [...] Provider Diagnosis [facility] [place] ([address]) [address] [address] 09/21/2024 Timothy Bentley Chronic fatigue, unspecified R53.82 [...] Notes * Katarina LOUISEB:1985 (39 yo F)Acc No.[id number]:09/21/2024 Weight Loss Patient: Florecita NASCIMENTO Provider: Conrado Bentley MD :1985 A ge:39 Y S ex:Female Date:09/21/2024 Address:[address] [place] [address] Subjective: * Chief Complaints: * 1 . [...] Information: * Visit Code: * Procedure Codes: 74255 [facility] - Weekly (tirzepatide) (0.5-5 mg) Tier 1. * Electronic signature of Melia Bentley MD, FAAAAI on 11/26/2024 at 12:56 AM IT TECHNICAL SUPPORT SPECIALIST Sign off status: Pending * Provider: Conrado Bentley MD Date: 1 11/22/2023 Generated for Trina fine/Marisol/Grabielitting on: 0 11/26/2024 12:56 AM IT TECHNICAL SUPPORT SPECIALIST History and Physical Notes * HPI (History [...]
--- OUTSIDE RECORDS SUMMARY | 2024-11-26 00:56 | XMS_ITS | Clinical Summary ---
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
--- OUTSIDE RECORDS SUMMARY | 2024-11-26 00:57 | XMS_ITS ---
Author Organization [facility] Address [address] [place] [address] Care Team Providers Care Registered Phlebotomist Part Time Name Role Phone McTimothy Unavailable [phone] REASON FOR VISIT [facility], [...] Provider Diagnosis [facility] [place] ([address]) [address] [address] 10/11/2024 Timothy Bentley Chronic fatigue, unspecified R53.82 [...] Notes * Lb LOUISEaDOB:1985 (39 yo F)Acc No.[id number]:10/11/2024 Weight Loss Patient: Florecita NASCIMENTO Provider: Conrado Bentley MD :1985 A ge:39 Y S ex:Female Date:10/11/2024 Address:[address] [place] [address] Subjective: * Chief Complaints: * 1 . [...] requency w eekly L ot Number/Expiration 0 -2024 M edication Source A H [employer] Compounding A dverse Reaction N one * Follow Up: 1 Week (Reason: GLP-1 Agonist Administration) * Billing Information: * Visit Code: * Procedure Codes: 47012 [facility] - Weekly (tirzepatide) (0.5-5 mg) Tier 1. * Electronic signature of Patr sal Bentley MD, FAAAAI on 11/26/2024 at 12:56 AM SHOP WELDER Sign off status: Pending * Provider: Conrado Bentley MD Date: 0 10/11/2024 Generated for Trina fine/Marisol/Eleni on: 0 11/26/2024 12:56 AM SHOP WELDER History and Physical Notes * HPI (History [...]
[2024-11-26 04:18] LABS: Troponin I < 0.012 ng/mL (0.000-0.034)
[2024-11-26] MEDS: BELLADONNA ALK/PHENOB ELIX 10 ML, MAG HYDROX/ALUMINUM HYD/SIMETH 30 ML, LIDOCAINE 2% VI... PO (04:28)
== END 2024-11-26 05:49 | disposition home or self-care (01) ==
LOC: ANHED 11-26 00:54
PROVIDERS: Emergency Medicine; Emergency Provider Registered Nurse; PCP Physician Assistant
DX: R07.89 Other chest pain (principal)
CPT/HCPCS: 36415; 71046; 80053; 83690; 84484; 85025; 85055; 85610; 85730; 93005; 99284; A9270